=== PATIENT | female | born 1965 | race Caucasian/White ===

== ENCOUNTER 2020-04-01 15:09 | Emergency (ER) | payer OTHER ==
[2020-04-01 15:37] VITALS: BMI 29.9
[2020-04-01] MEDS ORDERED: METOPROLOL TARTRATE 50 MG TABLET (FP) PO ONE (15:44)
[2020-04-01] MEDS ORDERED: LACTATED RINGERS SOLUTION 1000 ML INFUS.BAG IV ONE (15:45)
[2020-04-01] MEDS ORDERED: METOPROLOL TARTRATE 50 MG TABLET (FP) ONE (15:47)
--- OUTSIDE RECORDS SUMMARY | 2020-04-01 15:53 | XMS ---
:1965 Author Organization [facility] Care Team Providers Name Role Phone Horacio Suazo MD Unavailable Unavailable Horacio Suazo MD Unavailable Unavailable Horacio Suazo MD Unavailable Unavailable Horacio Suazo MD Unavailable Unavailable Horacio Suazo MD Unavailable Unavailable Horacio Suazo MD Unavailable Unavailable Horacio Suazo MD Unavailable Unavailable Horacio Suazo MD Unavailable Unavailable Horacio Suazo MD Unavailable Unavailable Horacio Suazo MD Unavailable Unavailable Horacio Suazo MD Unavailable Unavailable Horacio Suazo MD Unavailable Unavailable Horacio Suazo MD Unavailable Unavailable Horacio Suazo MD Unavailable Unavailable Horacio Suazo MD Unavailable Unavailable Horacio Suazo MD Unavailable Unavailable Horacio Suazo MD Unavailable Unavailable Horacio Suazo MD Unavailable Unavailable Re-disclosure Warning The records that you are about to access may contain information from federally- assisted alcohol or drug abuse programs. If such information is present, then the following federally mandated warning applies: This information has been disclosed to you from records protected by federal confidentiality rules (42 CFR part 2). The federal rules prohibit you from making any further disclosure of this information unless further disclosure is expressly permitted by the written consent of the person to whom it pertains or as otherwise permitted by 42 CFR part 2. A general authorization for the release of medical or other information is NOT sufficient for this purpose. The Federal rules restrict any use of the information to criminally investigate or prosecute any alcohol or drug abuse patient.The records that you are about to access may contain highly sensitive health information, the redisclosure of which is protected by Article 27-F of the [facility] Public Health law. If you continue you may haveaccess to information: Regarding HIV / AIDS; Provided by facilities licensed or operated by the [facility] Office of Mental Health; or Provided by the [facility] Office for People With Developmental Disabilities. If such information is present, then the following [facility] mandated warning applies: This information has been disclosed to you from confidential records which are protected by state law. State law prohibits you from making any further disclosure of this information without the specific written consent of the person to whom it pertains, or as otherwise permitted by law. Any unauthorized further disclosure in violation of state law may result in a fine or alf sentence or both. A general authorization for the release of medical or other information is NOT sufficient authorization for further disclosure. Encounters Encounter Providers Location Date Indications Data Source(s ) [facility] 03:30:00 [facility] [employer] [facility] EDT - 02/19/2020 Healt [facility] 04:08:21 PM EDT Patient discharged. Outpatient 01/22/2020 10:30:00 AM EDT - [facility] 01/22/2020 02:09:26 PM EDT System [facility] Patient discharged. Outpatient 01/19/2020 10:09:29 AM EDT [facility] Outpatient 01/19/2020 10:07:[address] AM [address]T [facility] Outpatient 01/15/2020 11:54:[address] [facility] Outpatient 01/15/2020 11:45:00 AM EDT - [facility] 01/15/2020 12:38:05 PM EDT System [facility] Patient discharged. Inpatient Admitter: Horacio Suazo 01/07/2020 12:00:00 AM Reuben ARCINIEGA - Storm Schaffer MD EDT - 01/08/2020 Hospital 05:54:00 PM EDT SVT Patient discharged. Outpatient 10/16/2019 03:45:00 PM [address] [facility] Outpatient 09/04/2019 04:30:[address] [facility] Outpatient 09/04/2019 12:00:00 AM EDT [facility] Medications Medication Brand Start Product Dose Route Administrative Pharmacy [facility] Indications Reaction Description Data Name Date Form Instructions Instructions Source(s) Lisinopril lisino 02/01/ 20 mg Oral active Take 1 Tab Bon 20 MG Oral priL 2020 by mouth Secou rs Tablet (PRINI 12:00: daily. Seema lisinopriL JOE, 00 AM Health (PRINIVIL, ZESTRI EDT System Inc ZESTRIL) 20 L) 20 mg tablet mg tablet Hydralazine hydrAL 01/25/ active TAKE 1 Bon Hydrochlori AZINE 2020 TABLET BY Se cours de 25 MG (APRES 12:00: MOUTH EVERY Seema Oral Tablet OLINE) 00 AM 12 HOURS H ealth hydrALAZINE 25 mg EDT System Inc (APRESOLINE tablet ) 25 mg tablet 24 HR metopr 01/14/ 50 mg Oral active Essential Take 1 Tab Bon metoprolol olol 2020 hypertension by laz th [facility] succinate succin 12:00: every twelv e Seema 50 MG ate 00 AM (12) hours. Health Extended (TOPRO EDT System In c Release L-XL) Oral Tablet 50 mg metoprolol XL succinate tablet (TOPROL-XL) 50 mg XL tablet Essential hypertension Metoprolol metoprolol 01/08/2020 50 Oral aborted 50 mg, Oral, 2 Bon Tartrate 50 tartrate 06:00:00 PM mg TI MES DAILY, [facility] MG Oral (LOPRESSOR) EDT First dose Seema Tablet tablet 50 mg (after [facility] metoprolol modification) System tartrate on Wed01/08/20 I nc (LOPRESSOR) at 1800, Unti l tablet 50 mg Discontinued Medication administered onsite Hydrochlorothiazide hydroCHLOROthiazide 01/08/2020 25 Oral aborted 25 mg, Oral, Bon 25 MG Oral Tablet (HYDRODIURIL) tablet 09:00:00 AM mg DAILY, [facility] hydroCHLOROthiazide 25 mg EDT dose on Wed Seema (HYDRODIURIL) tablet 01/07 at Health 25 mg 0900, Until System Discontinued Inc Medication administered onsite Lisinopril lisinopriL 01/08/2020 20 Oral aborted 20 mg, Oral, Bon 10 MG Oral (PRINIVIL, 09:00:00 AM mg D AILY, [facility] Tablet ZESTRIL) EDT dose on Wed Ch arity lisinopriL tablet 20 mg 0 at [facility] (PRINIVIL, 0900, Until Sy stem ZESTRIL) Discontinued Inc tablet 20 mg Medication administered onsite Hydralazine hydrALAZINE 01/08/2020 25 Oral aborted 25 mg, Oral, Bon Hydrochloride (APRESOLINE) 09:00:00 AM mg 2 TIMES [facility] 25 MG Oral tablet 25 mg EDT DAILY, First [facility] Tablet dose on [facility] hydrALAZINE 01/08/20 at stem (APRESOLINE) 0900, Until Inc tablet 25 mg Discontinued Medication administered onsite 24 HR metoprolol 01/08/2020 100 Oral aborted Essential Take 2 Bon metoprolol succinate 12:00:00 AM mg hypertension Tabs by [facility] succinate 50 (TOPROL-XL) EDT mouth Seema MG Extended 50 mg XL daily. He alth Release Oral tablet Syste m Tablet Inc metoprolol succinate (TOPROL-XL) 50 mg XL tablet Essential hypertension Lisinopril lisinopriL 01/08/2020 20 Oral active Take 1 Tab by Bon 20 MG Oral (PRINIVIL, 12:00:00 AM mg m outh daily. [facility] Tablet ZESTRIL) 20 EDT Charit y lisinopriL mg tablet Heal th (PRINIVIL, System ZESTRIL) 20 Inc mg tablet Metoprolol metoprolol 01/07/2020 25 Oral aborted 25 mg, Oral, 2 Bon Tartrate 25 tartrate 09:49:00 PM mg TI MES DAILY, [facility] MG Oral (LOPRESSOR) EDT First dose Seema Tablet tablet 25 mg (after [facility] metoprolol reorder) on stem tartrate 01/07/20 at In c (LOPRESSOR) 2148, Until tablet 25 mg Discontinued Medication administered onsite 1 ML heparin 01/07/2020 5000 SubCUTAneous aborted 5,000 Units, Bon heparin (porcine) 08:48:00 PM U SubCU TAneous, [facility] sodium, injection EDT EVERY 12 Mary rity porcine 5,000 HOURS, [facility] 5000 UNT/ML Units dose on Sun System Injection 01/07/20 at Inc heparin 2047, Until (porcine) Discontinued injection 5,000 Units Medication administered onsite Metoprolol metoprolol 01/07/2020 25 Oral completed 25 mg, Bon Tartrate 25 MG tartrate 07:57:00 PM mg Oral, [facility] Oral Tablet (LOPRESSOR) EDT NOW, 1 Seema metoprolol tablet 25 mg dose, Health tartrate Sun System (LOPRESSOR) 01/07/20 Inc tablet 25 mg at 7 Medication administered onsite potassium 59714-420-91 01/07/2020 40 Oral completed 40 mEq, Bon chloride 07:53:00 PM meq Oral, Sec ours (K-DUR, EDT NOW, 1 Seema KLOR-CON) SR dose, Health tablet 40 Sun System mEq 01/07/20 Inc at 1953 Medication administered onsite Metoprolol metoprolol 01/07/2020 5 IntraVENous completed 5 mg, Bon Tartrate 1 (LOPRESSOR) 07:06:00 PM mg IntraVENous, [facility] MG/ML injection 5 EDT NOW, 1 dose, Seema Injectable mg 01/07/20 at [facility] Solution 1906 System metoprolol Inc (LOPRESSOR) injection 5 mg Medication administered onsite sodium 8318-9834-59 01/07/2020 1000 IntraVENous completed 1,000 mL, at Bon chloride 06:50:00 PM mL 1,000 mL/ hr, [facility] 0.9 % EDT Administer Seema bolus over 60 Health infusion Minutes, System 1,000 mL IntraVENous, Inc 1 dose Medication administered onsite Aspirin 81 aspirin 01/07/2020 162 mg Oral completed 162 mg, Bon MG Chewable chewable 06:34:00 PM Or al, [facility] Tablet tablet 162 EDT NOW, 1 Desiree ty aspirin mg dose, [facility] chewable 01/07/20 at System Inc tablet 162 1834 mg Medication administered onsite 24 HR metoprolol 11/24/2019 50 Oral aborted Essential Take 1 Bon metoprolol succinate 12:00:00 AM mg hypertension Tab by [facility] succinate 50 (TOPROL-XL) EDT mouth Seema MG Extended 50 mg XL daily. He alth Release Oral tablet Syste m Tablet Inc metoprolol succinate (TOPROL-XL) 50 mg XL tablet Essential hypertension Hydrochlorothiazide 25 MG / lisinopril-hydroCHLOROthiazide 10/05/2019 1 Oral aborted Take 1 Bon Lisinopril 20 MG Oral Tablet (PRINZIDE, ZESTORETIC) 20-25 mg 12:00:00 AM {tbl} Tab by [facility] lisinopril-hydroCHLOROthiazide per tablet EDT mouth Seema (PRINZIDE, ZESTORETIC) 20-25 mg daily. Health per tablet System Inc Hydralazine Hydrochloride 25 MG hydrALAZINE (APRESOLINE) 25 mg 0 active TAKE 1 Bon Oral Tablet hydrALAZINE tablet 12:00:00 AM TABLET [facility] (APRESOLINE) 25 mg tablet EST BY [facility] System 12 Inc HOURS Magnesium Oxide 500 MG Oral Magnesium Oxide 500 mg cap 1 O ral aborted Take 1 Bon Capsule Magnesium Oxide 500 mg {tbl} Tab by [facility] daily. Health System [facility] Insurance Providers Payer Policy type Policy ID Covered Covered republican's Policy Pl an name / Coverage republican ID relationship to [employer] type [place] AIG [id number] SP [id number] AETNA PPO [id number] S [id number] AETNA HMO [id number] AETNA [id number] AETNA PPO [id number] AETNA [id number] [place] [id number] HMO/PPO AETNA HMO [id number] BLUE [id number] CROSS AETNA PPO [id number] Problems, Conditions, and Diagnoses Code Display Name Description Problem Type Effective Data Dates Source(s) M16.11 Arthritis of right Arthritis of right [id number] [facility] hip hip 12:00:00 AM [facility] [employer] [facility] I10 Essential Essential [id number] 01/08/2020 [facility] hypertension hypertension 12:00:00 AM [facility] D64.9 Anemia Anemia [id number] 01/08/2020 [facility] 12:00:00 AM [facility] I47.1 PSVT (paroxysmal PSVT (paroxysmal [id number] 01/07/2020 [facility] supraventricular supraventricular 12:00:00 AM C harity tachycardia) (HCC) tachycardia) (HCC) [facility] (presumed) (presumed) System Inc E87.6 Hypokalemia Hypokalemia [id number] 01/07/2020 [facility] 12:00:00 AM [facility] Z68.32 Body mass index Body mass index Diagnosis 02/19/2020 [facility] (BMI) 32.0-32.9, (bmi) 32.0-32.9, 03:25:30 PM [facility] Z68.31 Body mass index Body mass index Diagnosis 01/22/2020 [facility] (BMI) 31.0-31.9, (bmi) 31.0-31.9, 10:32:33 AM [facility] Z12.39 Encounter for other Encounter for other Diagnosis 020 [facility] screening for screening for 10:32:33 AM [facility] malignant neoplasm malignant neoplasm [facility] breast breast [facility] Z12.11 Encounter for Encounter for Diagnosis 01/22/2020 [facility] screening for screening for 10:32:33 AM [facility] malignant neoplasm malignant neoplasm [facility] colon colon System Inc E87.6 Hypokalemia Hypokalemia Diagnosis 01/15/2020 [facility] 11:48:10 AM [facility] E87.6 Hypokalemia Hypokalemia Diagnosis 01/07/2020 [facility] - Good 06:33:00 PM [facility] I47.1 Supraventricular Supraventricular Diagnosis 01/07/2020 [facility] - Good tachycardia tachycardia 06:33:00 PM [facility] Surgeries/Procedures Procedure Description Date Indications Data Source(s) AMB POC EKG <td><content HypokalemiaEssential [facility] ROUTINE ID="[id number]">A 0 hypertensionPSVT [facility] LEADS, INTER & MB POC EKG ROUTINE W/ :05:00 (paroxysmal Syst em Inc REP 12 LEADS, INTER & PM EDT supraventricular REP</content></td><td> tachycardia) (HCC) Routine</td><td> (presumed) 2019 12:05 PM EDT</td><td><paragraph >PSVT (paroxysmal supraventricular tachycardia) (HCC) (presumed)</paragraph> <paragraph>Essential hypertension</paragrap h><paragraph>Hypokalem ia</paragraph></td><td ><paragraph styleCode="header">Res ults for this procedure are in the <content styleCode="xLink2-Resu [id number]">results section</content>.</pa ragraph></td> Hypokalemia Essential hypertension PSVT (paroxysmal supraventricular tachyc ardia) (HCC) (presumed) ECHO TTHRC R-T 2D ECHO ADULT Routine 01/08/2020 01/08/20 20 Bon W/WOM-MODE COMPL COMPLETE 9:38 AM EDT 09:38:00 A M [facility] SPEC&COLR DOP EDT [facility] nc PROTHROMBIN TIME PROTHROMBIN TIME Routine 01/08/202002/2020 Bon + INR + INR 4:15 AM EDT 04:15:00 AM [facility] nc CBC WITH CBC WITH Routine 01/08/2020 01/08/2020 Bon AUTOMATED DIFF AUTOMATED DIFF 4:15 AM EDT 04:15: 00 AM [facility] nc TROPONIN I TROPONIN I Blood in 01/08/2020 01/08/2020 Bon Lab 4:15 AM EDT 04:15:00 AM [facility] nc METABOLIC PANEL, METABOLIC PANEL, Routine 01/08/202002/2020 Bon COMPREHENSIVE COMPREHENSIVE 4:15 AM EDT 04:15:00 AM [facility] nc MAGNESIUM MAGNESIUM Routine 01/08/2020 01/08/2020 Bon 4:15 AM EDT 04:15:00 AM [facility] nc TROPONIN I TROPONIN I Timed 01/08/2020 01/08/2020 Bon 12:40 AM EDT 12:40:00 AM [facility] nc XR CHEST PORT XR CHEST PORT STAT 01/07/2020 0 Bon 7:40 PM EDT 07:40:51 PM [facility] nc EKG, 12 LEAD, EKG, 12 LEAD, STAT 01/07/2020 0 Bon INITIAL INITIAL 6:42 PM EDT 06:42:12 PM [facility] nc PROTHROMBIN TIME PROTHROMBIN TIME STAT 01/07/202001/2020 Bon + INR + INR 6:42 PM EDT 06:42:00 PM [facility] nc CBC WITH CBC WITH STAT 01/07/2020 01/07/2020 Bon AUTOMATED DIFF AUTOMATED DIFF 6:42 PM EDT 06:42: 00 PM [facility] nc HC TROPONIN I HC TROPONIN I STAT 01/07/2020 0 Bon QUANT QUANT 6:42 PM EDT 06:42:00 PM [facility] nc METABOLIC PANEL, METABOLIC PANEL, STAT 01/07/202001/2020 Bon COMPREHENSIVE COMPREHENSIVE 6:42 PM EDT 06:42:00 PM [facility] nc MAGNESIUM MAGNESIUM STAT 01/07/2020 01/07/2020 Bon 6:42 PM EDT 06:42:00 PM [facility] nc Results ID Date Data Source [id number] 01/08/2020 05:59:51 PM EDT [facility] DISCHARGE SUMMARY from NursePATIENT INST RUCTIONS:After general anesthesia or intravenous sedation, for 24 hours or wh ile takingprescription Narcotics: Limit your activities Do not drive and operate haz Cle[employer] Machine Do not make important personal or business decisions Do not drink alcoholic beverages If you have not urinated within 8 hours after discharge, please contact yourrgeon preparation supervisor freezing.Report the following to your surgeon: Excessiv e pain, swelling, redness or odor of or around the surgical area Temperature ov er 100.5 Nausea and vomiting lasting longer than 4 hours or if unable to takemedicat ions Any signs of decreased circulation or nerve impairment to extremity: change in color, persistent numbness, tingling, coldness or increase pain Any questions What to do at Home:Recommended activity: Activity as tolerated,* Please give a l ist of your current medications to your Primary Care Provider.* Please update t his list whenever your medications are discontinued, doses are changed, or n ew medications (including zojr-ctt-rqxgrmu products) are added.* Please carry medi cation information at all times in case of emergencysituations.These are general in structions for a healthy lifestyle:No smoking/ No tobacco products/ Avoid expo sure to second hand smokeSurge General's Warning: Quitting smoking now greatly r educes serious risk [facility].Obesity, smoking, and sedentary lifestyle greatly increases your risk forillnessA healthy diet, regular physical exercise & weight monitoring are important formaintaining a healthy lifestyleYou may be retaining fl uid if you have a history of heart failure or if youexperience any of the following sy mptoms: Weight gain of 3 pounds or moreovernight or 5 pounds in a week, inc reased swelling in our hands or feet orshortness of breath while lying flat i n bed. Please call your doctor as soon asyou notice any of these symptoms; do not guillermo t until your next office visit.The discharge information has been reviewed with the p linda. The patientverbalized understanding.Discharge medications revi ewed with the patient and appropriate educationalmaterials and side effects te aching were provided. Name Value Range Interpretation Code Description Data Stephie rce(s) Supporting Document(s ) ID Date Data Source [id number] 01/08/2020 04:57:20 PM EDT [facility] Medicine Progress Note54 y.o. fema le seen in f/u. Feeling beter today overall. No C/o. nsr tele. Nofever/chills/n/v/feli rrhea/abd pain/cruz/dizziness/sob/vogel/cough/cpoe/dys uria/darkor bloody stoolsVisit VitalsBP 143/89 (BP 1 Location: Right arm, BP Pat ient Position: At rest)Pulse 66Temp 98.3 F (36.8 C)Resp 18Ht 5' 6" (1.676 m)Wt 175 lb 8 oz (79.6 kg)SpO2 98%BMI 28.33 kg/m Temp (24hrs), Av.6 F (37 C), Min:98 F (36.7 C), Max:99.5 F (37.5 C)Wt Readings from Last 3 Encounters:01/07/20 175 lb 8 oz (79.6 kg)09/05/18 183 lb (83 kg)07/22/18 177 lb (80.3 kg)A/o x0esxRozTw diaphores isctabrrr s1/2 nlabd soft ntndNo e/c/cMoves/senses in all ext and follows simple commandsIntake/Output:No intake or output data in the 24 hours ending 01/07 1112Last 3 shifts:No intake/output data recorded.MAR reviewed and pertinent medi cations noted or modified as neededMeds:Current Facility-Administered MedicationsMedication Dose Route Frequency Provider Last Rate Last Dose hydrALAZIN E (APRESOLINE) tablet 25 mg 25 mg Oral BID Sirena Delgado NP25 mg at 01/08/20 1 019 lisinopriL (PRINIVIL, ZESTRIL) tablet 20 mg 20 mg Oral DAILY Rizwana Delgado N P 20 mg at 01/08/20 1019 hydroCHLOROthiazide (HYDRODIURIL) tablet 25 mg 25 mg Oral DAILY Rizwana Delgado DIRECTOR DIETETICS DEPARTMENT 25 mg at 01/08/20 1019 pantoprazole ( PROTONIX) 40 mg in 0.9% sodium chloride 10 mL injection 40 mgIntraVENous ONCE Shtramb Viet dominguez MD heparin (porcine) injection 5,000 Units 5,000 Units SubCUTAneous Q1 2H Horacio Suazo MD 5,000 Units at 01/08/20 1019 metoprolol tartrate (LOPRESSOR) ta blet 25 mg 25 mg Oral BID Horacio Suazo MD25 mg at 01/08/20 1019Data personally reviewed:Labs:Recent Results (from the past 48 hour(s))METABOLIC PANEL, COMPREHENSIV E Collection Time: 01/07/20 6:42 PMResult Value Ref Range Sodium 141 136 - 145 mmo l/L Potassium 3.2 (L) 3.5 - 5.1 mmol/L Chloride 107 98 - 107 mmol/L CO2 26 21 - 32 mmol/L Anion gap 11 10 - 20 mmol/L Glucose 161 (H) 74 - 106 mg/dL BUN 16 7 - 18 mg/dL Creatinine 1.19 (H) 0.40 - 1.16 mg/dL GFR est AA >60 >60 ml/min/1.73m2 G FR est non-AA 50 (L) >60 ml/min/1.73m2 Calcium 8.7 8.5 - 10.1 mg/dL Bilirubin, total 0.3 0.2 - 1.0 mg/dL ALT (SGPT) 19 13 - 61 U/L AST (SGOT) 14 (L) 15 - 37 U/L Alk . phosphatase 70 45 - 117 U/L Protein, total 7.4 6.4 - 8.2 g/dL Albumin 3.6 3.5 - 4.7 g/dL Globulin 3.8 1.7 - 4.7 g/dL A-G Ratio 0.9 0.7 - 2.8CBC WITH AUTOMATED DIFF Col lection Time: 01/07/20 6:42 PMResult Value Ref Range WBC 3.4 (L) 4.8 - 10.6 K/uL RB C 4.16 (L) 4.20 - 5.40 M/uL HGB 12.4 12.0 - 16.0 g/dL HCT 37.7 36.0 - 47.0 % MCV 90. 6 81.0 - 94.0 FL MCH 29.8 27.0 - 35.0 PG MCHC 32.9 30.7 - 37.3 g/dL RDW 12.6 11.5 - 14 .0 % PLATELET 260 130 - 400 K/uL MPV 10.8 9.2 - 11.8 FL NRBC 0.0 0 PER 100 WBC ABSOLUT E NRBC 0.00 0.0 - 0.01 K/uL NEUTROPHILS 50 48.0 - 72.0 % LYMPHOCYTES 42 (H) 18.0 - 40.0 % MONOCYTES 5 2.0 - 12.0 % EOSINOPHILS 3 0.0 - 7.0 % BASOPHILS 0 0.0 - 3.0 % NISHA TURE GRANULOCYTES 0 0 - 0.5 % ABS. NEUTROPHILS 1.7 (L) 2.3 - 7.6 K/UL ABS. LYMPHOCYTES 1.4 0.9 - 4.2 K/UL ABS. MONOCYTES 0.2 0.1 - 1.7 K/UL ABS. EOSINOPHILS 0.1 0.0 - 1.0 K/UL ABS. BASOPHILS 0.0 0.0 - 0.4 K/UL ABS. IMM. GRANS. 0.0 0.0 - 0.17 K/U L DF AUTOMATEDTROPONIN I Collection Time: 01/07/20 6:42 PMResult Value Ref Range Troponin-I, Qt. <0.02 0.00 - 0.05 NG/MLMAGNESIUM Collection Time: 01/07/20 6:42 PMResult Value Ref Range Magnesium 1.9 1.6 - 2.6 mg/dLPROTHROMBIN TIME + INR Co llection Time: 01/07/20 6:42 PMResult Value Ref Range Prothrombin time 10.2 9.4 - 11 .1 sec INR 1.0 0.8 - 1.2EKG, 12 LEAD, INITIAL Collection Time: 01/07/20 6:42 PMResult Value Ref Range Ventricular Rate 118 BPM Atrial Rate 124 BPM P-R Interval 161 ms QRS Duration 92 ms Q-T Interval 316 ms QTC Calculation (Bezet) 443 ms Calculated P Arena 45 degrees Calculated R Arena 12 degrees Calculated T Arena 73 degrees Diagnosis Sinus tachycardiaLow voltage, precordial leadsMinimal ST elevation, inferior lead sTROPONIN I Collection Time: 01/08/20 12:40 AMResult Value Ref Range Troponin-I, Qt. 0.02 0.00 - 0.05 NG/MLCBC WITH AUTOMATED DIFF Collection Time: 01/08/20 4:15 AMR esult Value Ref Range WBC 3.4 (L) 4.8 - 10.6 K/uL RBC 3.70 (L) 4.20 - 5.40 M/uL HGB 1 0.8 (L) 12.0 - 16.0 g/dL HCT 34.3 (L) 36.0 - 47.0 % MCV 92.7 81.0 - 94.0 FL MCH 29.2 27.0 - 35.0 PG MCHC 31.5 30.7 - 37.3 g/dL RDW 12.9 11.5 - 14.0 % PLATELET 230 130 - 40 0 K/uL MPV 11.2 9.2 - 11.8 FL NRBC 0.0 0 PER 100 WBC ABSOLUTE NRBC 0.00 0.0 - 0.01 K/ uL NEUTROPHILS 67 48.0 - 72.0 % LYMPHOCYTES 31 18.0 - 40.0 % MONOCYTES 1 (L) 2.0 - 1 2.0 % EOSINOPHILS 1 0.0 - 7.0 % BASOPHILS 0 0.0 - 3.0 % IMMATURE GRANULOCYTES 0 % AB S. NEUTROPHILS 2.3 2.3 - 7.6 K/UL ABS. LYMPHOCYTES 1.1 0.9 - 4.2 K/UL ABS. MONO CYTES 0.0 (L) 0.1 - 1.7 K/UL ABS. EOSINOPHILS 0.0 0.0 - 1.0 K/UL ABS. BASOPHILS 0.0 0. 0 - 0.4 K/UL ABS. IMM. GRANS. 0.0 K/UL RBC COMMENTS NORMOCYTIC, NORMOCHROMIC PLATEL ET ESTIMATE ADEQUATE DF MANUALMETABOLIC PANEL, COMPREHENSIVE Collection Time: 4:15 AMResult Value Ref Range Sodium 142 136 - 145 mmol/L Potassium 3.8 3.5 - 5.1 mmol/L Chloride 111 (H) 98 - 107 mmol/L CO2 28 21 - 32 mmol/L Anion gap 7 (L) 10 - 20 mmol/L Glucose 100 74 - 106 mg/dL BUN 18 7 - 18 mg/dL Creatinine 0.74 0.40 - 1 .16 mg/dL GFR est AA >60 >60 ml/min/1.73m2 GFR est non-AA >60 >60 ml/min/1.73m2 Celia cium 8.9 8.5 - 10.1 mg/dL Bilirubin, total 0.4 0.2 - 1.0 mg/dL ALT (SGPT) 15 13 - 6 1 U/L AST (SGOT) 9 (L) 15 - 37 U/L Alk. phosphatase 57 45 - 117 U/L Protein, tot al 6.4 6.4 - 8.2 g/dL Albumin 3.0 (L) 3.5 - 4.7 g/dL Globulin 3.4 1.7 - 4.7 g/dL A-G Ratio 0.9 0.7 - 2.8PROTHROMBIN TIME + INR Collection Time: 01/08/20 4:15 AMResult Value Ref Range Prothrombin time 10.6 9.4 - 11.1 sec INR 1.0 0.8 - 1.2MAGNESIUM Sean ection Time: 01/08/20 4:15 AMResult Value Ref Range Magnesium 2.1 1.6 - 2.6 mg/Deirdre ROPONIN I Collection Time: 01/08/20 4:15 AMResult Value Ref Range Troponin-I, Qt. <0.02 0.00 - 0.05 NG/MLECHO ADULT COMPLETE Collection Time: 01/08/20 9:38 AMResult Value Ref Range Aortic Valve Systolic Peak Velocity 147.00 cm/s AoV VTI 35.30 cm Ao rtic Valve Area by Continuity of Peak Velocity 3.8 cm2 Aortic Valve Area by Co ntinuity of VTI 3.1 cm2 AoV PG 8.6 mmHg LVIDd 4.63 3.9 - 5.3 cm LVPWd 1.00 (A) 0.6 - 0 .9 cm LVIDs 2.83 cm IVSd 1.10 (A) 0.6 - 0.9 cm LV ES Vol A4C 26.6 mL LVOT d 2.10 cm LVOT Peak Velocity 160.00 cm/s LVOT Peak Gradient 10.2 mmHg LVOT VTI 31.70 cm LV E' Septal Velocity 9.27 cm/s LV E' Lateral Velocity 11.90 cm/s MVA (PHT) 4.6 cm2 MV A Manuel 72.90 cm/s MV E Manuel 117.00 cm/s MV E/A 1.60 Pulmonic Valve Acceleration Time 97 .0 ms Aortic Valve Systolic Mean Gradient 6.0 mmHg LV Ejection Fraction MOD 4C 66 % LV Mass AL 171.6 (A) 67 - 162 g LV Mass AL Index 90.7 43 - 95 g/m2 E/E' lateral 9.8 3 E/E' septal 12.62 E/E' ratio (averaged) 11.23 LV ED Vol A4C 78.4 mL Mitral Valve E Wave Deceleration Time 165.0 ms Mitral Valve Pressure Half-time 48.0 ms Left At rium Minor Arena 1.85 cm Left Atrium Major Arena 3.50 cm LVED Vol Index A4C 41.4 mL/ m2 LVES Vol Index A4C 14.1 mL/m2 Ao Root D 2.50 cm GINA/BSA Pk Manuel 2.0 cm2/m2 GINA/BS A VTI 1.6 cm2/m2 Left Ventricular Fractional Shortening by 2D [id number] % Left Wong tricular Outflow Tract Mean Gradient 4 mmHg Left Ventricular Outflow Tract Mean Velo city 0.949 cm/s Mitral Valve Deceleration [place] 7.05 AV Velocity Ratio 1.09 AV VTI Ratio 0.9 Aortic valve mean velocity 1.12 m/sImaging:Xr Chest PortResult Date: 01/06CHEST 1 view HISTORY: Chest pain. Hypertension. COMPARISON: None. There is noevidence of acute cardiopulmonary disease. The heart, mediastinum, hilarregions, uzma ngs and pleura appear to be normal. There are degenerative changes ofthe spine. The re maining visualized portions of the bony thorax appear to benormal.IMPRESSION: No evidence of acute cardiopulmonary disease.A/p:Patient Active Hospital Prob walker List: SVT (supraventricular tachycardia) (HCC) (01/07/2020) Assessment: nsr now. E cho done this am. Trop neg Plan: check tsh. Cont meds per cv htn+Hypertensive heart disease Assessment: Plan: await echo, per cv Hypokalemia (01/07/2020) Assessment: b rosa today Plan: Monitor labs, correct prn Anemia (01/08/2020) Assessment: new. No prev cscope, or labs in 2.5y. hasnt seen pcp for unclearreason. Lower today likely d/ t ivf@er, no bleeding clinically Plan: protonix iv x1, guaiac, fe/vits check. M onitor labs, correct prnDmitry MD Rajeev[ ] Case d/w consultants in detail.[ ] Case d/w pt's family in detailCase d/w rn&cm [id number] 4:51 PMCase d/w Yesi rosas&Trav. Dc home on adjusted meds. Script given for bwtomorrow.>50% of this ~35___ min visit spent on [id number] and phone coordination ofcare, and patient e ducation and counseling across all conditions, and other dcneeds. Pt verbal ized understanding and agreement w/ w/u and tx plan.Viet Boo MD Name Value Range Interpretation Code Description Data Stephie rce(s) Supporting Document(s ) ID Date Data Source [id number] 01/08/2020 04:56:38 PM EDT [facility] - [facility] 01/07/2020-01/08/20Please see admission h& p and consults-cv/eps - in Epic. See my progress notefrom today for more details of pt's stay. In brief, admitted for SVT(supraventricular tachycardia) (HCC)- terminated by adenosine in the field.Please see d/c meds list below. No complication s during hospital stay. Ptclinically and symptomatically improved during the hosp ital stay. I gave herscript for bw tomorrow. I advised her also to record and bring b p diary to herupcoming appts.Follow-up Information Follow up With Specialties D etails Why Contact Info Ellen Smith MD Family Medicine Schedule an appointment as soon as possiblefor a visit [address] [phone] Rhea Livingston MD Cardiology Schedule an appointment as soon as possible for dolores it in 3 days 12 [facility] [phone] go for non-fasting bloodwork tomorrowCurrent Discharge Medication ListSTART taking these medica tions DetailslisinopriL (PRINIVIL, ZESTRIL) 20 mg tablet Take 1 Tab by mouth daily.Q ty: 30 Tab, Refills: 0CONTINUE these medications which have CHANGED Detailsme toprolol succinate (TOPROL-XL) 50 mg XL tablet Take 2 Tabs by mouth daily.Qty: 9 0 Tab, Refills: 1 Associated Diagnoses: Essential hypertensionCONTINUE these med ications which have NOT CHANGED DetailshydrALAZINE (APRESOLINE) 25 mg ta blet TAKE 1 TABLET BY MOUTH EVERY 12 HOURSQty: 180 Tab, Refills: 1ascorbic ac id, vitamin C, 1,000 mg chew Take 1 Tab by mouth daily.Magnesium Oxide 500 mg cap T margaux 1 Tab by mouth daily.CHOLECALCIFEROL, VITAMIN D3, (VITAMIN D3 PO) Take 1 Cap b y mouth daily. [id number] IUSTOP taking these medications lisinopril-hydroCHLOROthiazi de (PRINZIDE, ZESTORETIC) 20-25 mg per tabletComments:Reason for Stopping:Ronda Boo MD Name Value Range Interpretation Code Description Data Stephie rce(s) Supporting Document(s ) ID Date Data Source [id number] 01/08/2020 02:52:34 PM EDT [facility] - [facility] Department of ElectrophysiologyGood Charlie ritan [address], [address] [address]Qzvedi: [phone] Office Ihbdtmb ElectrophysiologyPatient: Paige Armstrong Date of : 1965 's Date: 01/08/2020 Age: 54 y .o. Gender: femaleReferring Physician: Saroj Almodovar [facility] Complaint:Palpitatio nsHistory of Present Illness:54 y.o. female with a PMH of hypertension who was in he re usual state of healthwhen she suddenly developed a fast regular heart rhythm as sociated with sob andsevere anxiety. Patient called EMS and was given Adenocard which converted herto a sinus tachycardia but no initial EKG is available for review.Nena ent states this has never happened to her before and denies any priorhistory of SV T/palpitations.Past Medical History:Diagnosis Date Hypertension OsteoarthritisPast S urgical History:Procedure Laterality Date HX HIP REPLACEMENT 05/2017Medications:Esme simons Facility-Administered Medications: hydrALAZINE (APRESOLINE) tablet 25 mg, 2 5 mg, Oral, BID, Sirena Delgado NP, 25 mg at 01/08/20 1019 lisinopriL (PRINIVIL, ZESTRIL) tablet 20 mg, 20 mg, Oral, DAILY, Rizwana Delgado NP, 20 mg at 01/08/20 1019 pantoprazole (PROTONIX) 40 mg in 0.9% sodium chloride 10 mL injection, 40 mg,I ntraVENous, ONCE, Viet Boo MD metoprolol tartrate (LOPRESSOR) tablet 5 0 mg, 50 mg, Oral, BID, Saroj Almodovar MD heparin (porcine) injection 5,000 Units, 5,000 Units, SubCUTAneous, Q12H,Horacio Suazo MD, 5,000 Units at 01/08/20 1019 Allergies:AllergiesAllergen Reactions Amlodipine PalpitationsSocial History: T he patient reports that she has never smoked. She has neverused smokeless tobacco. She reports current alcohol use of about 2.0 standarddrinks of alcohol per week. She reports that she does not use drugs.Family History: family history includes Hyperte nsion in her father and mother.Review of Systems: Pertinent positives and negativ es as per HPI. Denies fever,chills, sweat, weight change, hemoptysis, cough, abdomi nal pain, N/V, diarrhea,hematuria, bleeding, easy bruising. All other systems reviewe d and are negative.Physical Exam:Blood pressure 124/74, pulse 74, temperature 9 9.4 F (37.4 C), resp. rate 18,height 5' 6" (1.676 m), weight 175 lb 8 oz (79.6 kg), SpO2 97 %.Physical ExamConstitutional: She is oriented to person, place, and time. She appearswell-developed and well-nourished.HENT:Head: Normocephalic and atraumatic.Neck: Normal range of motion. Neck supple.Cardiovascular: Normal rate, regular rhythm and normal heart sounds.Pulmonary/Chest: Effort normal an d breath sounds normal.Abdominal: Soft. There is no abdominal tenderness.Musculoskelet al: Normal range of motion. General: No edema.Neurological: She is alert and raina ented to person, place, and time.Skin: Skin is warm. No erythema.Psychiatric: She cruz s a normal mood and affect. Her behavior is normal.Labs/Testing:ECG: Sinus tachycard ia rate 118 Low voltage in frontal leads.XR Results (most recent):Results from [facility] Encounter encounter on 01/07/20XR CHEST PORT Narrative CHEST 1 viewHISTORY: Ches t pain. Hypertension.COMPARISON: None.There is no evidence of acute cardiopulmonary disease. The heart, mediastinum,hilar regions, lungs and pleura appear to be n ormal. There are degenerativechanges of the spine. The remaining visualized portions of the bony thoraxappear to be normal. Impression IMPRESSION: No evidence of ac tiffany cardiopulmonary disease.Recent Results (from the past 24 hour(s))METABOLIC PANE L, COMPREHENSIVE Collection Time: 01/07/20 6:42 PMResult Value Ref Range Sodium 141 136 - 145 mmol/L Potassium 3.2 (L) 3.5 - 5.1 mmol/L Chloride 107 98 - 107 mmol/L CO2 26 21 - 32 mmol/L Anion gap 11 10 - 20 mmol/L Glucose 161 (H) 74 - 106 mg/dL BUN 16 7 - 18 mg/dL Creatinine 1.19 (H) 0.40 - 1.16 mg/dL GFR est AA >60 >60 ml/min/1.73m2 G FR est non-AA 50 (L) >60 ml/min/1.73m2 Calcium 8.7 8.5 - 10.1 mg/dL Bilirubin, total 0.3 0.2 - 1.0 mg/dL ALT (SGPT) 19 13 - 61 U/L AST (SGOT) 14 (L) 15 - 37 U/L Alk . phosphatase 70 45 - 117 U/L Protein, total 7.4 6.4 - 8.2 g/dL Albumin 3.6 3.5 - 4.7 g/dL Globulin 3.8 1.7 - 4.7 g/dL A-G Ratio 0.9 0.7 - 2.8CBC WITH AUTOMATED DIFF Col lection Time: 01/07/20 6:42 PMResult Value Ref Range WBC 3.4 (L) 4.8 - 10.6 K/uL RB C 4.16 (L) 4.20 - 5.40 M/uL HGB 12.4 12.0 - 16.0 g/dL HCT 37.7 36.0 - 47.0 % MCV 90. 6 81.0 - 94.0 FL MCH 29.8 27.0 - 35.0 PG MCHC 32.9 30.7 - 37.3 g/dL RDW 12.6 11.5 - 14 .0 % PLATELET 260 130 - 400 K/uL MPV 10.8 9.2 - 11.8 FL NRBC 0.0 0 PER 100 WBC ABSOLUT E NRBC 0.00 0.0 - 0.01 K/uL NEUTROPHILS 50 48.0 - 72.0 % LYMPHOCYTES 42 (H) 18.0 - 40.0 % MONOCYTES 5 2.0 - 12.0 % EOSINOPHILS 3 0.0 - 7.0 % BASOPHILS 0 0.0 - 3.0 % NISHA TURE GRANULOCYTES 0 0 - 0.5 % ABS. NEUTROPHILS 1.7 (L) 2.3 - 7.6 K/UL ABS. LYMPHOCYTES 1.4 0.9 - 4.2 K/UL ABS. MONOCYTES 0.2 0.1 - 1.7 K/UL ABS. EOSINOPHILS 0.1 0.0 - 1.0 K/UL ABS. BASOPHILS 0.0 0.0 - 0.4 K/UL ABS. IMM. GRANS. 0.0 0.0 - 0.17 K/U L DF AUTOMATEDTROPONIN I Collection Time: 01/07/20 6:42 PMResult Value Ref Range Troponin-I, Qt. <0.02 0.00 - 0.05 NG/MLMAGNESIUM Collection Time: 01/07/20 6:42 PMResult Value Ref Range Magnesium 1.9 1.6 - 2.6 mg/dLPROTHROMBIN TIME + INR Co llection Time: 01/07/20 6:42 PMResult Value Ref Range Prothrombin time 10.2 9.4 - 11 .1 sec INR 1.0 0.8 - 1.2EKG, 12 LEAD, INITIAL Collection Time: 01/07/20 6:42 PMResult Value Ref Range Ventricular Rate 118 BPM Atrial Rate 124 BPM P-R Interval 161 ms QRS Duration 92 ms Q-T Interval 316 ms QTC Calculation (Bezet) 443 ms Calculated P Arena 45 degrees Calculated R Arena 12 degrees Calculated T Arena 73 degrees Diagnosis Sinus tachycardiaLow voltage, precordial leadsMinimal ST elevation, inferior lead sTROPONIN I Collection Time: 01/08/20 12:40 AMResult Value Ref Range Troponin-I, Qt. 0.02 0.00 - 0.05 NG/MLCBC WITH AUTOMATED DIFF Collection Time: 01/08/20 4:15 AMR esult Value Ref Range WBC 3.4 (L) 4.8 - 10.6 K/uL RBC 3.70 (L) 4.20 - 5.40 M/uL HGB 1 0.8 (L) 12.0 - 16.0 g/dL HCT 34.3 (L) 36.0 - 47.0 % MCV 92.7 81.0 - 94.0 FL MCH 29.2 27.0 - 35.0 PG MCHC 31.5 30.7 - 37.3 g/dL RDW 12.9 11.5 - 14.0 % PLATELET 230 130 - 40 0 K/uL MPV 11.2 9.2 - 11.8 FL NRBC 0.0 0 PER 100 WBC ABSOLUTE NRBC 0.00 0.0 - 0.01 K/ uL NEUTROPHILS 67 48.0 - 72.0 % LYMPHOCYTES 31 18.0 - 40.0 % MONOCYTES 1 (L) 2.0 - 1 2.0 % EOSINOPHILS 1 0.0 - 7.0 % BASOPHILS 0 0.0 - 3.0 % IMMATURE GRANULOCYTES 0 % AB S. NEUTROPHILS 2.3 2.3 - 7.6 K/UL ABS. LYMPHOCYTES 1.1 0.9 - 4.2 K/UL ABS. MONO CYTES 0.0 (L) 0.1 - 1.7 K/UL ABS. EOSINOPHILS 0.0 0.0 - 1.0 K/UL ABS. BASOPHILS 0.0 0. 0 - 0.4 K/UL ABS. IMM. GRANS. 0.0 K/UL RBC COMMENTS NORMOCYTIC, NORMOCHROMIC PLATEL ET ESTIMATE ADEQUATE DF MANUALMETABOLIC PANEL, COMPREHENSIVE Collection Time: 4:15 AMResult Value Ref Range Sodium 142 136 - 145 mmol/L Potassium 3.8 3.5 - 5.1 mmol/L Chloride 111 (H) 98 - 107 mmol/L CO2 28 21 - 32 mmol/L Anion gap 7 (L) 10 - 20 mmol/L Glucose 100 74 - 106 mg/dL BUN 18 7 - 18 mg/dL Creatinine 0.74 0.40 - 1 .16 mg/dL GFR est AA >60 >60 ml/min/1.73m2 GFR est non-AA >60 >60 ml/min/1.73m2 Celia cium 8.9 8.5 - 10.1 mg/dL Bilirubin, total 0.4 0.2 - 1.0 mg/dL ALT (SGPT) 15 13 - 6 1 U/L AST (SGOT) 9 (L) 15 - 37 U/L Alk. phosphatase 57 45 - 117 U/L Protein, tot al 6.4 6.4 - 8.2 g/dL Albumin 3.0 (L) 3.5 - 4.7 g/dL Globulin 3.4 1.7 - 4.7 g/dL A-G Ratio 0.9 0.7 - 2.8PROTHROMBIN TIME + INR Collection Time: 01/08/20 4:15 AMResult Value Ref Range Prothrombin time 10.6 9.4 - 11.1 sec INR 1.0 0.8 - 1.2MAGNESIUM Sean ection Time: 01/08/20 4:15 AMResult Value Ref Range Magnesium 2.1 1.6 - 2.6 mg/Deirdre ROPONIN I Collection Time: 01/08/20 4:15 AMResult Value Ref Range Troponin-I, Qt. <0.02 0.00 - 0.05 NG/MLECHO ADULT COMPLETE Collection Time: 01/08/20 9:38 AMResult Value Ref Range Aortic Valve Systolic Peak Velocity 147.00 cm/s AoV VTI 35.30 cm Ao rtic Valve Area by Continuity of Peak Velocity 3.8 cm2 Aortic Valve Area by Co ntinuity of VTI 3.1 cm2 AoV PG 8.6 mmHg LVIDd 4.63 3.9 - 5.3 cm LVPWd 1.00 (A) 0.6 - 0 .9 cm LVIDs 2.83 cm IVSd 1.10 (A) 0.6 - 0.9 cm LV ES Vol A4C 26.6 mL LVOT d 2.10 cm LVOT Peak Velocity 160.00 cm/s LVOT Peak Gradient 10.2 mmHg LVOT VTI 31.70 cm LV E' Septal Velocity 9.27 cm/s LV E' Lateral Velocity 11.90 cm/s MVA (PHT) 4.6 cm2 MV A Manuel 72.90 cm/s MV E Manuel 117.00 cm/s MV E/A 1.60 Pulmonic Valve Acceleration Time 97 .0 ms Aortic Valve Systolic Mean Gradient 6.0 mmHg LV Ejection Fraction MOD 4C 66 % LV Mass AL 171.6 (A) 67 - 162 g LV Mass AL Index 90.7 43 - 95 g/m2 E/E' lateral 9.8 3 E/E' septal 12.62 E/E' ratio (averaged) 11.23 LV ED Vol A4C 78.4 mL Mitral Valve E Wave Deceleration Time 165.0 ms Mitral Valve Pressure Half-time 48.0 ms Left At rium Minor Arena 1.85 cm Left Atrium Major Arena 3.50 cm LVED Vol Index A4C 41.4 mL/ m2 LVES Vol Index A4C 14.1 mL/m2 Ao Root D 2.50 cm GINA/BSA Pk Manuel 2.0 cm2/m2 GINA/BS A VTI 1.6 cm2/m2 Left Ventricular Fractional Shortening by 2D 38.120037219 % Left Wong tricular Outflow Tract Mean Gradient 4 mmHg Left Ventricular Outflow Tract Mean Velo city 0.949 cm/s Mitral Valve Deceleration [place] 7.05 AV Velocity Ratio 1.09 AV VTI Ratio 0.9 Aortic valve mean velocity 1.12 m/sAssessment/Plan54 y.o. female with a PMH of hypertension who was in here usual state of healthwhen she suddenly develop ed a fast regular heart rhythm associated with sob andsevere anxiety. Patient celia led EMS and was given Adenocard which converted herto a sinus tachycardia but no initial EKG is available for review.Patient states this has never hap pened to her before and denies any priorhistory of SVT/palpitations.Probabl e PSVT but no EKG to document it.Would discharge patient on increase dose of be ta alfa and place an outpatientevent recorder during follow up.Suman Kang MD Name Value Range Interpretation Code Description Data Stephie rce(s) Supporting Document(s ) ID Date Data Source [id number] 01/08/2020 11:23:12 AM EDT [facility] - [facility] Marshall Dodson MD [facility] Nguyễn Bazan MD [facility] Maggie Dueñas MD [facility] Maria Teresa Miguel MD [facility] Melissa Livingston MD [facility] Saroj Almodovar MD [facility] cARDIOLOGY CONSULTATION ____ASSESSMENTHospital Problems Date Reviewed: 09/05/2018 Codes Class Noted POA Hypokalemia ICD-10-CM: E87.6ICD-9-CM: 276.8 01/07/2020 Yes * (Principal) SVT (s upraventricular tachycardia) (HCC) ICD-10-CM: I47.1ICD-9-CM: 427.89 01/07/2020 Yes Hypertensive heart disease ICD-10-CM: I11.9ICD-9-CM: 402.90 08/01/2014 YesRECOMMENDATIONS- Discontinue HCTZ in favor of increased BBlocker dose for SVT- ECHO pending- Ambulate ad libCV stable for outpatient follow-up on increased BBlocker pending ECHO/EPConsult.See ordersThank you for the opportunity to p articipate in the care of Paige Armstrong.(X) Chart reviewed.Consult requested by Ellen Coffey MD CC: SVTHPI: Paige Armstrong is a 54 y.o. year old female with a history of HTN an dHTN-CM followed annually in the outpatient office with no additional CVD orsymptoms since Echo/str ess/24h Holter in 2014, who now presents with acute onsetof palpitations prompting EMS. Patient rep orts being in her usual state ofhealth since her office visit last year. She denies any intentional C Vexercise, but remains active doing vigorous housework without exertional cp,palps, or dyspnea.Patient remained in good health all weekend, including Wednesday AM. She performedvigorous housework without limi tations. At rest at 5pm, she experienced theacute onset of palpitations with associated sensation o f dyspnea/anxietyprompting EMS. EMS arrival confirmed tachycardia, prompting recommendations t oValsalva. She was reportedly administered Adenosine 6mg with transientimprovement, and then return of SVT. She was then administered Adenosine 12mgwith ?reported termination.However, patient reports on going palpitations upon arrival [facility] ER. She deniesany abrupt termination of her symptoms with medicat ion administration. She doesreport her symptoms had subsided by the time she arrived to her [facility] room ~10pm.Since then,Paige Armstrong denies any chest pain, palpitations, dyspnea, lightheadedness,d izziness, syncope, PND, orthopnea, or edema.She remains extremely anxious regarding this episode , and in general. Patientadmits this weekend was the 1 year anniversary of her father's .Past M edical History:Diagnosis Date Hypertension OsteoarthritisPast Surgical History:Procedure Laterality Da te HX HIP REPLACEMENT 05/2017AllergiesAllergen Reactions Amlodipine PalpitationsCurrent Facility- Administered MedicationsMedication Dose Route Frequency hydrALAZINE (APRESOLINE) tablet 25 mg 2 5 mg Oral BID lisinopriL (PRINIVIL, ZESTRIL) tablet 20 mg 20 mg Oral DAILY hydroCHLOROthiazide (HYDR ODIURIL) tablet 25 mg 25 mg Oral DAILY heparin (porcine) injection 5,000 Units 5,000 Units SubCU TAneous Q12H metoprolol tartrate (LOPRESSOR) tablet 25 mg 25 mg Oral BIDFamily HistoryProblem Relatio n Age of Onset Hypertension Mother Hypertension FatherSocial HistoryTobacco Use Smoking status: Cassidy conklin Smoker Smokeless tobacco: Never UsedSubstance Use Topics Alcohol use: Yes Alcohol/week: 2.0 paul dard drinks Types: 2 Glasses of wine per week Comment: sociallyComplete Review of SystemsNo fev er, chills, weight gain, weight lossNo visual changes or dischargeNo hearing changes, cough, rhin orrhea, sneezing, sore throat, epixtaxisNo wheezing, sputum, phlegm, hemoptysisNo nausea, vomiting, d iarrhea, constipation, melena, BRBPRNo dysuria, hematuria, pyuria, frequency, urgencyNo rash, itchi ngNo headache, focal weakness, or focal numbess+depression/anxiety, or dysthymia No bruising, bleedingX All other ROS is negative Unable to obtain ROS due to acute nature of critic al illness/mental statusVisit VitalsBP 143/89 (BP 1 Location: Right arm, BP Patient Position: At rest) Pulse 66Temp 98.3 F (36.8 C)Resp 18Ht 5' 6" (1.676 m)Wt 175 lb 8 oz (79.6 kg)SpO2 98%BMI 28.33 kg/m Temp (24hrs), Av.6 F (37 C), Min:98 F (36.7 C), Max:99.5 F (37.5 C)No intake or output data in the 24 hours ending 01/08/20 0858General: Well developed, well nourished, no acute dist ress, mood appropriateHEENT: Normocephalic, atraumatic, no discharge, epistaxis, membranes moistNec k: Supple, no JVD, carotid bruits, or lymphadenopathy appreciatedChest: Non-tender, no snow h visible, no wound bleeding, oozing, or erythemaLungs: Clear to auscultation bilaterally, no wh eezing, rales, or ronchiCV: Regular rate and rhythm, normal S1 S2, no murmurs, rubs, or phillip psAbd: Soft non-tender, non- distended, no hepatosplenomegaly, no bruitsExt: Warm, well-perfused, no cyanosis, clubbing, or edema, distal pulse2+Neuro: Awake, alert, and orien cecile x3, no acute distress, no focal deficitsSkin: Warm, dry, no open wounds, bleeding, or bruisi ng visible, no rashTele: NSREMS Strips: Sinus tachycardia ~130 bpm -> NSR (sinus morphology p-wave sidentified on available strips)EKG: Sinus tachycardiaEKG Results Procedure 720 Value Units Date/T jennifer EKG, 12 LEAD, INITIAL [[id number]] Collected: 01/07/20 1842 Order Status: Completed Updated: 01/07 0819 Ventricular Rate 118 BPM Atrial Rate 124 BPM P-R Interval 161 ms QRS Duration 92 ms Q-T Interval 316 ms QTC Calculation (Bezet) 443 ms Calculated P Arena 45 degrees Calculated R Arena 12 de grees Calculated T Arena 73 degrees Diagnosis -- Sinus tachycardiaLow voltage, precordial leads Minimal ST elevation, inferior [id number] ECHO: Normal [id number] ETT: [id number] 24h Holter: NSR with AP CsCXR:CXR Results (Last 48 hours) 01/07/20 1940 XR CHEST PORT Final result Impression: IMPRESSION: No evidence of acute cardiopulmonary disease. Narrative: CHEST 1 viewHISTORY: Chest pain. Hypertension.CO MPARISON: None.There is no evidence of acute cardiopulmonary disease. The heart, mediastinum,hilar re gions, lungs and pleura appear to be normal. There are degenerativechanges of the spine. The re maining visualized portions of the bony thoraxappear to be normal.Recent Results (from the past 24 hour(s))METABOLIC PANEL, COMPREHENSIVE Collection Time: 01/07/20 6:42 PMResult Value Ref Range Sodium 141 136 - 145 mmol/L Potassium 3.2 (L) 3.5 - 5.1 mmol/L Chloride 107 98 - 107 mmol/L CO2 26 21 - 32 mmol/L Anion gap 11 10 - 20 mmol/L Glucose 161 (H) 74 - 106 mg/dL BUN 16 7 - 18 mg/dL Creatinine 1.1 9 (H) 0.40 - 1.16 mg/dL GFR est AA >60 >60 ml/min/1.73m2 GFR est non-AA 50 (L) >60 ml/min/1.73m2 Calc ium 8.7 8.5 - 10.1 mg/dL Bilirubin, total 0.3 0.2 - 1.0 mg/dL ALT (SGPT) 19 13 - 61 U/L AST (SGOT) 14 (L) 15 - 37 U/L Alk. phosphatase 70 45 - 117 U/L Protein, total 7.4 6.4 - 8.2 g/dL Albumin 3.6 3.5 - 4.7 g/dL Globulin 3.8 1.7 - 4.7 g/dL A-G Ratio 0.9 0.7 - 2.8CBC WITH AUTOMATED DIFF Collection Time: 02/17 6:42 PMResult Value Ref Range WBC 3.4 (L) 4.8 - 10.6 K/uL RBC 4.16 (L) 4.20 - 5.40 M/uL HGB 1 2.4 12.0 - 16.0 g/dL HCT 37.7 36.0 - 47.0 % MCV 90.6 81.0 - 94.0 FL MCH 29.8 27.0 - 35.0 PG MCHC 32. 9 30.7 - 37.3 g/dL RDW 12.6 11.5 - 14.0 % PLATELET 260 130 - 400 K/uL MPV 10.8 9.2 - 11.8 FL NRBC 0.0 0 PER 100 WBC ABSOLUTE NRBC 0.00 0.0 - 0.01 K/uL NEUTROPHILS 50 48.0 - 72.0 % LYMPHOCYTES 42 (H) 18.0 - 40.0 % MONOCYTES 5 2.0 - 12.0 % EOSINOPHILS 3 0.0 - 7.0 % BASOPHILS 0 0.0 - 3.0 % IMMATURE GRANULO CYTES 0 0 - 0.5 % ABS. NEUTROPHILS 1.7 (L) 2.3 - 7.6 K/UL ABS. LYMPHOCYTES 1.4 0.9 - 4.2 K/UL ABS. MONO CYTES 0.2 0.1 - 1.7 K/UL ABS. EOSINOPHILS 0.1 0.0 - 1.0 K/UL ABS. BASOPHILS 0.0 0.0 - 0.4 K/UL ABS. I MM. GRANS. 0.0 0.0 - 0.17 K/UL DF AUTOMATEDTROPONIN I Collection Time: 01/07/20 6:42 PMResult Value Ref Range Troponin-I, Qt. <0.02 0.00 - 0.05 NG/MLMAGNESIUM Collection Time: 01/07/20 6:42 PMResult Value Ref Range Magnesium 1.9 1.6 - 2.6 mg/dLPROTHROMBIN TIME + INR Collection T jennifer: 01/07/20 6:42 PMResult Value Ref Range Prothrombin time 10.2 9.4 - 11.1 sec INR 1.0 0.8 - 1.2EKG , 12 LEAD, INITIAL Collection Time: 01/07/20 6:42 PMResult Value Ref Range Ventricular Rate 118 BPM Atrial Rate 124 BPM P-R Interval 161 ms QRS Duration 92 ms Q-T Interval 316 ms QTC Calculation (Bezet) 443 ms Calculated P Arena 45 degrees Calculated R Arena 12 degrees Calculated T Arena 73 degrees Feli gnosis Sinus tachycardiaLow voltage, precordial leadsMinimal ST elevation, inferior leadsTROPONIN I C ollection Time: 01/08/20 12:40 AMResult Value Ref Range Troponin-I, Qt. 0.02 0.00 - 0.05 NG/MLCB C WITH AUTOMATED DIFF Collection Time: 01/08/20 4:15 AMResult Value Ref Range WBC 3.4 (L) 4.8 - 10.6 K /uL RBC 3.70 (L) 4.20 - 5.40 M/uL HGB 10.8 (L) 12.0 - 16.0 g/dL HCT 34.3 (L) 36.0 - 47.0 % MCV 92.7 81.0 - 94.0 FL MCH 29.2 27.0 - 35.0 PG MCHC 31.5 30.7 - 37.3 g/dL RDW 12.9 11.5 - 14.0 % PLATELET 230 130 - 400 K/uL MPV 11.2 9.2 - 11.8 FL NRBC 0.0 0 PER 100 WBC ABSOLUTE NRBC 0.00 0.0 - 0.01 K/uL NEUTR OPHILS 67 48.0 - 72.0 % LYMPHOCYTES 31 18.0 - 40.0 % MONOCYTES 1 (L) 2.0 - 12.0 % EOSINOPHILS 1 0.0 - 7 .0 % BASOPHILS 0 0.0 - 3.0 % IMMATURE GRANULOCYTES 0 % ABS. NEUTROPHILS 2.3 2.3 - 7.6 K/UL ABS. LYMP HOCYTES 1.1 0.9 - 4.2 K/UL ABS. MONOCYTES 0.0 (L) 0.1 - 1.7 K/UL ABS. EOSINOPHILS 0.0 0.0 - 1.0 K/UL ABS. BASOPHILS 0.0 0.0 - 0.4 K/UL ABS. IMM. GRANS. 0.0 K/UL RBC COMMENTS NORMOCYTIC, NORMOCHROMIC PL ATELET ESTIMATE ADEQUATE DF MANUALMETABOLIC PANEL, COMPREHENSIVE Collection Time: 01/08/20 4:15 AMResult Value Ref Range Sodium 142 136 - 145 mmol/L Potassium 3.8 3.5 - 5.1 mmol/L Chloride 111 (H) 98 - 107 mmol/L CO2 28 21 - 32 mmol/L Anion gap 7 (L) 10 - 20 mmol/L Glucose 100 74 - 106 mg/d L BUN 18 7 - 18 mg/dL Creatinine 0.74 0.40 - 1.16 mg/dL GFR est AA >60 >60 ml/min/1.73m2 GFR est non-AA >60 >60 ml/min/1.73m2 Calcium 8.9 8.5 - 10.1 mg/dL Bilirubin, total 0.4 0.2 - 1.0 mg/dL ALT (SGPT) 15 13 - 61 U/L AST (SGOT) 9 (L) 15 - 37 U/L Alk. phosphatase 57 45 - 117 U/L Protein, total 6.4 6.4 - 8.2 g /dL Albumin 3.0 (L) 3.5 - 4.7 g/dL Globulin 3.4 1.7 - 4.7 g/dL A-G Ratio 0.9 0.7 - 2.8PROTHROMBIN TIME + INR Collection Time: 01/08/20 4:15 AMResult Value Ref Range Prothrombin time 10.6 9.4 - 11.1 sec INR 1.0 0.8 - 1.2MAGNESIUM Collection Time: 01/08/20 4:15 AMResult Value Ref Range Magnesium 2.1 1 .6 - 2.6 mg/dLTROPONIN I Collection Time: 01/08/20 4:15 AMResult Value Ref Range Troponin-I, Qt. <0.02 0.00 - 0.05 NG/MLThe billing code submitted in association with this evaluation also in cludes thetime to review patient's prior records, communicate with the nursing & physicianteams, obtai n corroborating data, and discuss the risk and benefits of theproposed management plan with the pat ient and their family. Name Value Range Interpretation Code Description Data Stephie rce(s) Supporting Document(s ) ID Date Data Source [id number] 01/08/2020 10:18:53 AM EDT [facility] Care Management InterventionsPCP Verifie d by CM: Yes(Dr. Ellen Smith)Mode of Transport at Discharge: Other (see comme nt)(Spouse, Bryant)MyChart Signup: NoDischarge Durable Medical Equipment: NoPhysical Th erapy Consult: NoOccupational Therapy Consult: NoSpeech Therapy Consult: NoCur rent Support Network: Lives with Spouse, Other(Lives with spouse, daughter 16and son, 22)The Patient and/or Patient Time Analysis Clerk was Provided with a Choic e of Providerand Agrees with the Discharge Plan?: YesName of the Patient Kyle mcrae Who was Provided with a Choice of Providerand Agrees with the Discharge Pl an: PatientFreedom of Choice List was Provided with Basic Dialogue that Suppor ts thePatient's Individualized Plan of Care/Goals, Treatment Preferences and Sh aresthe Quality Data Associated with the Providers?: YesVeteran Resource Informat ion Provided?: RefusedDischarge LocationDischarge Placement: HomeSocial worker met with the patient at bedside, who was alert, oriented andcooperative, and completed assessment. Patient resides with spouse, son (22),and daughter (16), in a private house with 0 steps to enter and 2 flights ofstairs inside the home. Elian lobo confirmed her cell phone number, ,her spouses' contact inform ation, , and also requested to add herfriend, Mira Boo, [phone], as an additional emergency contact. Priorto admission, patient was able to a mbulate and complete all ADLs independently,denies having any DME in t he home, history/current home care services/inpatientrehab services. Patien t does not anticipate having any needs at discharge andprefers outpatient follow-u p for post discharge care.Tentative discharge plan is to discharge patient home with n o new needsanticipated. Patient's spouse will transport home at discharge. CM johna vailayen for further assistance.Alexa Will, SURJITW01/08/202010:18 AM Name Value Range Interpretation Code Description Data [facility] rce(s) Supporting Document(s ) ID Date Data Source [id number] 01/08/2020 09:19:17 AM EDT [facility] Alert oriented reports comfort telemetry recording a sinus rhythm vitals arestable, pt denies palpations at this time Name Value Range Interpretation Code Description Data [facility] Supporting Document(s ) ID Date Data Source [id number] 01/08/2020 09:18:04 AM EDT [facility] Problem: Falls - Risk ofGoal: *Absence o f FallsDescription: Document Yolanda Fall Risk and appropriate interventions in theflow sheet.Outcome: Progressing Towards GoalNote: Fall Risk Interventions:Medication Inter ventions: Bed/chair exit alarm, Patient to call before gettingOOB, Teach patient to arise slowly Name Value Range Interpretation Code Description Data [facility] rce(s) Supporting Document(s ) ID Date Data Source [id number] 01/08/2020 07:30:27 AM EDT [facility] Bedside and Verbal shift change report g iven to Kiersten Galloway RN (oncomingnurse) by Jose C Braxton RN (offgoing nurse). R eport included the following information SBAR, Kardex,Intake/Output and Recent Re sults Name Value Range Interpretation Code Description Data [facility] rce(s) Supporting Document(s ) ID Date Data Source [id number] 01/08/2020 05:56:55 AM EDT [facility] History and PhysicalPatient: Paige mauro Sex: female DOA: 01/07/2020Date of : 1965 A ge: 54 y.o. LOS: LOS: 0 daysChief Complaint: tachycardic episode at home, received 6, 12 Adenosine broke tosinus tachy The again restarted rate to 130. ED g ave one more dose of 12 mgof Adenosine, now tachyHPI:Paige Armstrong is a 54 y.o. fem missy who Has hx of Hypertension andOsteoarthritis presented with SVT now sinus tachy after receiving Adenosine .Denies any chest pain sob fever or chil ls .Past Medical History:Diagnosis Date Hypertension OsteoarthritisPast Surgica l History:Procedure Laterality Date HX HIP REPLACEMENT 05/2017Family HistoryProblem Relation Age of Onset Hypertension Mother Hypertension Father Pertinent negativ es: fever chills nausea or diarrhea Pertinent positive:Social HistoryTobacco Use Smoking status: Never Smoker Smokeless tobacco: Never UsedSubstance Use Topics Alcohol use: Yes Alcohol/week: 2.0 standard drinks Types: 2 Glasses of wine per wee k Comment: sociallyPrior to Admission medicationsMedication Sig Start Date End Date Taking? Authorizing Providermetoprolol succinate (TOPROL-XL) 50 mg XL tablet Ta ke 1 Tab by mouth daily.11/24/19 Rhea Livingston MDlisinopril-hydroCHLOROthiazide (PRINZIDE, ZESTORETIC) 20-25 mg per tablet Take 1Tab by mouth daily. 10/05/19 Nguyễn Rudolph MDhydrALAZINE (APRESOLINE) 25 mg tablet TAKE 1 TABLET BY MOUTH EVERY 12 H OURS07/10/19 Rhea Livingston MDascorbic acid, vitamin C, 1,000 mg chew Take 1 Ta b by mouth daily. Provider,HistoricalMagnesium Oxide 500 m g cap Take 1 Tab by mouth daily. Provider, HistoricalCHOLECALCIFEROL, VITAMIN D3, ( VITAMIN D3 PO) Take 1 Cap by mouth daily. 48950 IU06/12/17 Provider, HistoricalAl lergiesAllergen Reactions Amlodipine PalpitationsReview of Systems[x]A comple te Review of Systems was negative except for that written in theHistory of Present Il lness[] Unable to obtain ROS due to []mental status change []sedated [] intubated[ x] System reviewed as follows:Constitutional: negative fever, negative chills, negativ e weight lossEyes: negative diplopia or visual changes, negative eye painENT: negative coryza, negative sore throatRespiratory: negative cough, hemo ptysis, dyspneaCards: negative for chest pain, palpitations, lower extremity lucian a. SinusTachyGI: negative for nausea, vomiting, diarrhea, and abdominal painGe nitourinary: negative for frequency, dysuria and hematuriaIntegument: negative for r harrison and pruritusHematologic: negative for easy bruising and gum/nose bleedingMuscu loskel: negative for myalgias, arthralgias, back pain and muscle weaknessNeurologica l: negative for headaches, dizziness, vertigo, memory problems andgait problem sBehavl/Psych: negative for feelings of anxiety, depressionPhysical Exam:Visit V italsBP (!) 139/94 (BP 1 Location: Right arm, BP Patient Position: At rest)Pulse 81Tem p 98 F (36.7 C)Resp 18Ht 5' 6" (1.676 m)Wt 79.6 kg (175 lb 8 oz)SpO2 95%BMI 28.33 k g/m Physical Exam:Physical Exam:General: Alert, cooperative, no distress, appears stated age.Eyes: Conjunctivae/corneas clear. PERRL, EOMs intact. Fundi benignE ars: Normal TMs and external ear canals both ears.Nose: Nares normal. Septum midline. Mucosa normal. No drainage or sinustenderness.Mouth/Throat: Lips, muco sa, and tongue normal. Teeth and gums normal.Neck: Supple, symmetrical, trache a midline, no adenopathy, thyroid: noenlargement/tenderness/nodules, no car otid bruit and no JVD.Back: Symmetric, no curvature. ROM normal. No CVA tenderness .Lungs: Clear to auscultation bilaterally.Heart: Regular rate and rhy thm, S1, S2 normal, no murmur, click, rub or gallop.Sinus tachyAbdomen: Soft, non-t tai. Bowel sounds normal. No masses, No organomegaly.Extremities: Extremities no rmal, atraumatic, no cyanosis or edema.Pulses: 2+ and symmetric all extre mities.Skin: Skin color, texture, turgor normal. No rashes or lesionsLymph nodes: Cervical, supraclavicular, and axillary nodes normal.Neurologic: CNII-XII intact . Normal strength, sensation and reflexes throughout.Labs Reviewed:CMP:Lab Results Component Value Date/Time NA 141 01/07/2020 06:42 PM K 3.2 (L) 01/07/2020 06:42 PM C L 107 01/07/2020 06:42 PM CO2 26 01/07/2020 06:42 PM AGAP 11 01/07/2020 06:42 PM GLU 161 (H) 01/07/2020 06:42 PM BUN 16 01/07/2020 06:42 PM CREA 1.19 (H) 2019 06:42 PM GFRAA >60 01/07/2020 06:42 PM GFRNA 50 (L) 01/07/2020 06:42 PM CA 8.7 01/07/2020 06:42 PM MG 1.9 01/07/2020 06:42 PM ALB 3.6 01/07/2020 06:42 PM TP 7.4 06:42 PM GLOB 3.8 01/07/2020 06:42 PM AGRAT 0.9 01/07/2020 06:42 PM ALT 19 01/07/2020 06:42 PMCBC:Lab ResultsComponent Value Date/Time WBC 3.4 (L) 01/07/2020 0 6:42 PM HGB 12.4 01/07/2020 06:42 PM HCT 37.7 01/07/2020 06:42 PM PLT 260 01/07/2020 0 6:42 PMAll Cardiac Markers in the last 24 hours:Lab ResultsComponent Value Date/Ti me TROIQ <0.02 01/07/2020 06:42 PMCOAGS:Lab ResultsComponent Value Date/Time PTP 10. 2 01/07/2020 06:42 PM INR 1.0 01/07/2020 06:42 PMLiver Panel:Lab ResultsComponent Value Date/Time ALB 3.6 01/07/2020 06:42 PM TP 7.4 01/07/2020 06:42 PM GLOB 3.8 0801/2020 06:42 PM AGRAT 0.9 01/07/2020 06:42 PM ALT 19 01/07/2020 06:42 PM AP 70 020 06:42 PMUrine :No results found for this or any previous visit.Microbiology:Resul ts No results found for the last 336 hours. Paige Armstrong is a 54 y.o. fem missy who Has hx of Hypertension andOsteoarthritis presented with SVT now sinus tachy after receiving Adenosine .Denies any chest pain sob fever or chil lsAssessment/PlanPrincipal Problem: SVT (supraventricular tachycardia) (HCC) (01/07/2020)Active Problems: Hypokalemia (01/07/2020) Potassium replenishedAM labs ECHOOxygen prnHx of HypertensionLopressorConsult Cardiology Dr. Rosario Status: Full CodeDVT Prophylaxis:[x] Venodynes[] Lovenox[x] H eparin[] No Lovenox or Heparin for risk of bleeding Name Value Range Interpretation Code Description Data Stephie rce(s) Supporting Document(s ) ID Date Data Source [id number] 01/08/2020 08:41:19 AM EDT [facility] Name Value Range Interpretation Description Data Sup porting Code Source(s) Document(s ) Leukocytes 3.4 K/uL 4.8-10.6 Below low normal [facility] - [#/volume] in Good Blood by [facility] Automated count [facility] Erythrocytes 3.70 4.20-5.4 Below low normal [facility] - [#/volume] in M/uL 0 Good Blood by [facility] Automated count [facility] Hemoglobin 10.8 12.0-16. Below low normal [facility] - [Mass/volume] in g/dL 0 Good Blood [facility] Hematocrit 34.3 % 36.0-47. Below low normal [facility] - [Volume 0 Good Fraction] of [facility] Blood by Hospital Automated count Erythrocyte mean 92.7 FL 81.0-94. [facility] - corpuscular 0 Good volume [Entitic [facility] volume] by Hospital Automated count Erythrocyte mean 29.2 PG 27.0-35. [facility] - corpuscular 0 Good hemoglobin [facility] [Entitic mass] [facility] by Automated count Erythrocyte mean 31.5 30.7-37. [facility] - corpuscular g/dL 3 Good hemoglobin [facility] [Mass/volume] by Automated count Erythrocyte 12.9 % 11.5-14. [facility] - distribution 0 Good width [Ratio] by [facility] Automated count [facility] Platelets 230 K/uL 130-400 [facility] - [#/volume] in Good Blood by [facility] Automated count Hospital Platelet mean 11.2 FL 9.2-11.8 [facility] - volume [Entitic Good volume] in Blood [facility] by Automated Hospital count Nucleated 0.0 PER 0 [facility] - erythrocytes/100 100 WBC Good leukocytes [facility] [Ratio] in Blood [facility] Nucleated 0.00 0.0-0.01 [facility] - erythrocytes K/uL Good [#/volume] in [facility] Segmented 67 % 48.0-72. [facility] - neutrophils/100 0 Good leukocytes in [facility] Lymphocytes/100 31 % 18.0-40. [facility] - leukocytes in [address] [facility] Monocytes/100 1 % 2.0-12.0 Below low normal [facility] - leukocytes in [facility] Eosinophils/100 1 % 0.0-7.0 [facility] - leukocytes in [facility] Basophils/100 0 % 0.0-3.0 [facility] - leukocytes in [facility] Immature 0 % [facility] - granulocytes/100 Good leukocytes in [facility] Blood by Hospital Automated count Segmented 2.3 K/UL 2.3-7.6 [facility] - neutrophils Good [#/volume] in [facility] Lymphocytes 1.1 K/UL 0.9-4.2 [facility] - [#/volume] in [facility] Monocytes 0.0 K/UL 0.1-1.7 Below low normal [facility] - [#/volume] in [facility] Eosinophils 0.0 K/UL 0.0-1.0 [facility] - [#/volume] in [facility] Basophils 0.0 K/UL 0.0-0.4 [facility] - [#/volume] in [facility] Immature 0.0 K/UL [facility] - granulocytes Good [#/volume] in [facility] Blood by Hospital Automated count Erythrocyte [facility] - morphology Good finding [facility] [Identifier] in Hospital Blood Platelet [facility] - adequacy Good [Presence] in [facility] Blood by [facility] microscopy Differential [facility] - cell count Good method - Blood [facility] ID Date Data Source [id number] 01/08/2020 07:47:15 AM EDT [facility] Name Value Range Interpretation Description Data Sup porting Code Source(s) Document(s ) Troponin 0.00-0.05 [facility] - Good I.cardiac [facility] [Mass/volume Hospital ] in Serum or Plasma (NOTE)The presence of detectable troponi n above the reference rangeindicates myocardial injury which may be due to is chemia,myocarditis, trauma, etc. Clinical correlation is necessary todetermine the significance of this finding. Sequential testing isrecommended to determine if th e typical rise and fall of cTnI isdemonstrated. Note, cardiac troponin-I has a relatively longhalf-life and may be present well after the CK MB has returne d tobaseline. cTnI results in the indeterminate/solomon zone for myocardial infarction: 0.06 to 0.59 ng/mL cTnI cutoff/range of values consistent with m yocardial infarction: 0.60 to 1.50 ng/mL ID Date Data Source [id number] 01/08/2020 05:07:04 AM EDT [facility] Name Value Range Interpretation Description Data Sup porting Code Source(s) Document(s ) Sodium 142 136-145 [facility] - [Moles/volume] in mmol/L [facility] Serum or Plasma [facility] Potassium 3.8 3.5-5.1 [facility] - [Moles/volume] in mmol/L [facility] Serum or Plasma [facility] Chloride 111 98-107 Above high [facility] - [Moles/volume] in mmol/L normal [facility] Serum or Plasma [facility] Carbon dioxide, 28 21-32 [facility] - total mmol/L Good [Moles/volume] in [facility] Serum or Plasma Hospital Anion gap in Serum 7 10-20 Below low normal [facility] - or Plasma mmol/L [facility] Glucose 100 74-106 [facility] - [Mass/volume] in mg/dL [facility] Serum or Plasma [facility] Urea nitrogen 18 7-18 [facility] - [Mass/volume] in mg/dL [facility] Serum or Plasma [facility] Creatinine 0.74 0.40-1. [facility] - [Mass/volume] in mg/dL 16 Good Serum or Plasma [facility] Glomerular >60 [facility] - filtration Good rate/1.73 sq M [facility] predicted among Hospital blacks [Volume Rate/Area] in Serum or Plasma by Creatinine-based formula (MDRD) Glomerular >60 [facility] - filtration Good rate/1.73 sq M [facility] predicted among Hospital non-blacks [Volume Rate/Area] in Serum or Plasma by Creatinine-based formula (MDRD) Calcium 8.9 8.5-10. [facility] - [Mass/volume] in mg/dL 1 Good Serum or Plasma [facility] Bilirubin.total 0.4 0.2-1.0 [facility] - [Mass/volume] in mg/dL Good Serum or Plasma [facility] Alanine 15 U/L 13-61 [facility] - aminotransferase Good [Enzymatic [facility] activity/volume] in Hospital Serum or Plasma Aspartate 9 U/L 15-37 Below low normal [facility] - aminotransferase Good [Enzymatic [facility] activity/volume] in Hospital Serum or Plasma by With P-5'-P Alkaline 57 U/L 45-117 [facility] - phosphatase Good [Enzymatic [facility] activity/volume] in Hospital Serum or Plasma Protein 6.4 6.4-8.2 [facility] - [Mass/volume] in g/dL Good Serum or Plasma [facility] Albumin 3.0 3.5-4.7 Below low normal [facility] - [Mass/volume] in g/dL Good Serum or Plasma by [facility] Bromocresol [facility] (BCP) dye binding method Globulin 3.4 1.7-4.7 [facility] - [Mass/volume] in g/dL Good Serum by [facility] Albumin/Globulin 0.9 0.7-2.8 [facility] - [Mass Ratio] in Good Serum or Plasma [facility] ID Date Data Source [id number] 01/08/2020 05:07:04 AM EDT [facility] Name Value Range Interpretation Description Data Sup porting Code Source(s) Document(s ) Magnesium 2.1 mg/dL 1.6-2.6 [facility] - Good [Mass/volume] [facility] in Serum or Hospital Plasma ID Date Data Source [id number] 01/08/2020 05:00:18 AM EDT [facility] Name Value Range Interpretation Description Data Sup porting Code Source(s) Document(s ) Prothrombin 10.6 sec 9.4-11.1 [facility] time (PT) [facility] INR in 1.0 0.8-1.2 [facility] Platelet poor [facility] plasma by Hospital Coagulation assay ID Date Data Source [id number] 01/08/2020 01:10:41 AM EDT [facility] Name Value Range Interpretation Description Data Sup porting Code Source(s) Document(s ) Troponin 0.02 0.00-0.05 [facility] I.cardiac NG/ML [facility] [Mass/volume Hospital ] in Serum or Plasma (NOTE)The presence of detectable troponi n above the reference rangeindicates myocardial injury which may be due to is chemia,myocarditis, trauma, etc. Clinical correlation is necessary todetermine the significance of this finding. Sequential testing isrecommended to determine if th e typical rise and fall of cTnI isdemonstrated. Note, cardiac troponin-I has a relatively longhalf-life and may be present well after the CK MB has returne d tobaseline. cTnI results in the indeterminate/solomon zone for myocardial infarction: 0.06 to 0.59 ng/mL cTnI cutoff/range of values consistent with m yocardial infarction: 0.60 to 1.50 ng/mL ID Date Data Source [id number] 01/07/2020 09:59:17 PM EDT [facility] [id number] [facility] [address] [facility] [id number] [phone] Paige Armstrong (Female) [id number] ES I 2 ED Dispo:ADMIT Chief Complaint: Palpitations Diagnosis: SVT (supraventricular tachycardia) (HCC) [] Current Providers: Attending: Seng Ybarra; Reuben Russell Consulting Provider: Reuben Livingston Primary Nurse: Hailee Rangel; LOGAN Simmons SN: [id number] [employer] [id number] - [facility] MrnMRN: [id number] P rint Group [id number] - [facility] Age SexDOB 1965 AGE 54 SEX Female Primary Care Provider: Ellen Singh MD Eeqderx Agents Noted Type Reaction(s)A MLODIPINE 09/05/2018 15 - Palpitatio*Date Reviewed: 01/07/2020[facility] ed by: Mack Trammell E - Review CompleteED Provider Notes: All notesHNO ID: [id number]: Ayan Ybarra is, MDService: EMERGENCYAuthor Type: PhysicianFiled: 01/07/202055Note Text:HPIPatient comes in with a tachycardic episode at homeEMS found the patient in SVT by 160 give 6 of adenosine 6 and regular 12she is no w in sinus tachycardia at 120Patient is recovered his hypertension no history of SVTNothing different today s the patient had a regular caffeinated coffeeinstead of a decafThat was early this morningNo fever chills na usea vomiting diarrheaMaintains that she is taking all of her medicationsPast Medical History:Diagnosi s Date Hypertension OsteoarthritisPast Surgical History:Procedure Laterality Date HX HIP REPLACEMENT 06/01 018Family History:Problem Relation Age of Onset Hypertension Mother Hypertension FatherSocial HistorySocioec onomic History Marital status: Spouse name: Not on file Number of children: Not on file Years o f education: Not on file Highest education level: Not on fileOccupational History 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 Financial resource strain: Not on file Food insecurity Worry: Not on file Robins bility: Not on file Transportation needs Medical: Not on file Non-medical: Not on fileTobacco Use Smo mayi status: Never Smoker Smokeless tobacco: Never UsedSubstance and Sexual Activity Alcohol use: Yes Alcoh ol/week: 2.0 standard drinks Types: 2 Glasses of wine per week Comment: socially Drug use: No Sexual activity: Not on fileLifestyle Physical activity Days per week: Not on file Minutes per session: Not on sean e Stress: Not on fileRelationships Social connections Talks on phone: Not on file Gets together: Not o n file Attends sikh service: Not on file Active member of club or organization: Not on file Attends me etings of clubs or organizations: Not on file Relationship status: Not on file Intimate partner violence Fear of current or ex partner: Not on file Emotionally abused: Not on file Physically abused: Not on file Forced sexual activity: Not on fileOther Topics Concern Not on fileSocial History Narrative Not on sean eALLERGIES: AmlodipineReview of SystemsConstitutional: Negative.HENT: Negative.Eyes: Negative.Respiratory: Neg ative.Cardiovascular: Negative.Gastrointestinal: Negative.Endocrine: Negative.Genitourinary: Negative.Musculo skeletal: Negative.Skin: Negative.Allergic/Immunologic: Negative.Neurological: Negative.Hematolo gical: Negative.Psychiatric/Behavioral: Negative.Vitals: 01/07/20 1900 01/07/20 1945 01/07/201999 0 2038BP: (!) 160/95 (!) 148/95 (!) 155/101 135/87Pulse: (!) 122 96 95 99Resp: 15 12 22Temp:SpO2: 98% 99% 1 00% 97%Weight:Height:Physical ExamHENT: Head: Normocephalic.Cardiovascular: Rate and Rhythm: Tachycardia present. Heart sounds: Normal heart sounds.Pulmonary: Effort: Pulmonary ef fort is normal. Breath sounds: Normal breath sounds.Abdominal: General: Abdomen is flat. Bowel sounds a re normal. Palpations: Abdomen is soft.Musculoskeletal: General: No swelling.Skin: General: Skin is war m and dry.Neurological: General: No focal deficit present. Mental Status: She is alert and oriented to per son, place, and time.Psychiatric: Mood and Affect: Mood normal. Behavior: Behavior normal.MDMProGabriele Claros Shashi, MD, reviewed the patient's past history, allergies andhome medications as documented in the nursing chart.Labs:Recent Results (from the past 12 hour(s))METABOLIC PANEL, COMPREHENSIVE C ollection Time: 01/07/20 6:42 PMResult Value Ref Range Sodium 141 136 - 145 mmol/L Potassium 3.2 (L) 3.5 - 5.1 mmol/L Chloride 107 98 - 107 mmol/L CO2 26 21 - 32 mmol/L Anion gap 11 10 - 20 mmol/L Glucose 161 (H) 74 - 106 mg/dL BUN 16 7 - 18 mg/dL Creatinine 1.19 (H) 0.40 - 1.16 mg/dL GFR est AA >60 >60 ml/min/1.73m2 G FR est non-AA 50 (L) >60 ml/min/1.73m2 Calcium 8.7 8.5 - 10.1 mg/dL Bilirubin, total 0.3 0.2 - 1.0 mg/dL ALT (SGPT) 19 13 - 61 U/L AST (SGOT) 14 (L) 15 - 37 U/L Alk. phosphatase 70 45 - 117 U/L Protein, total 7.4 6.4 - 8.2 g/dL Albumin 3.6 3.5 - 4.7 g/dL Globulin 3.8 1.7 - 4.7 g/dL A-G Ratio 0.9 0.7 - 2.8CBC WITH AUTOMATED DI FF Collection Time: 01/07/20 6:42 PMResult Value Ref Range WBC 3.4 (L) 4.8 - 10.6 K/uL RBC 4.16 (L) 4.20 - 5.40 M/uL HGB 12.4 12.0 - 16.0 g/dL HCT 37.7 36.0 - 47.0 % MCV 90.6 81.0 - 94.0 FL MCH 29.8 27.0 - 35.0 PG M CHC 32.9 30.7 - 37.3 g/dL RDW 12.6 11.5 - 14.0 % PLATELET 260 130 - 400 K/uL MPV 10.8 9.2 - 11.8 FL NRBC 0.0 0 PER 100 WBC ABSOLUTE NRBC 0.00 0.0 - 0.01 K/uL NEUTROPHILS 50 48.0 - 72.0 % LYMPHOCYTES 42 (H) 18.0 - 40.0 % MONOCYTES 5 2.0 - 12.0 % EOSINOPHILS 3 0.0 - 7.0 % BASOPHILS 0 0.0 - 3.0 % IMMATURE GRANULOCYTES 0 0 - 0.5 % ABS. NEUTROPHILS 1.7 (L) 2.3 - 7.6 K/UL ABS. LYMPHOCYTES 1.4 0.9 - 4.2 K/UL ABS. MONOCYTES 0.2 0.1 - 1.7 K/ UL ABS. EOSINOPHILS 0.1 0.0 - 1.0 K/UL ABS. BASOPHILS 0.0 0.0 - 0.4 K/UL ABS. IMM. GRANS. 0.0 0.0 - 0.17 K/U L DF AUTOMATEDTROPONIN I Collection Time: 01/07/20 6:42 PMResult Value Ref Range Troponin-I, Qt. <0.02 0. 00 - 0.05 NG/MLMAGNESIUM Collection Time: 01/07/20 6:42 PMResult Value Ref Range Magnesium 1.9 1.6 - 2.6 mg/dLPROTHROMBIN TIME + INR Collection Time: 01/07/20 6:42 PMResult Value Ref Range Prothrombin time 10.2 9. 4 - 11.1 sec INR 1.0 0.8 - 1.2EKG, 12 LEAD, INITIAL Collection Time: 01/07/20 6:42 PMResult Value Ref Range Ventricular Rate 118 BPM Atrial Rate 124 BPM P-R Interval 161 ms QRS Duration 92 ms Q-T Interval 316 ms QTC C alculation (Bezet) 443 ms Calculated P Arena 45 degrees Calculated R Arena 12 degrees Calculated T Arena 73 deg ce Diagnosis Sinus tachycardiaLow voltage, precordial leadsMinimal ST elevation, inferior leadsEKG:EMS EKG although shows SVT of 160 this is premedicationPost medication heart rate is somewhat in 140s to 150sEKG is s inus tach at [address]-T changesRadiology:CXR Results (Last 48 hours) 01/07/20 1940 XR CHEST PORT Final result Impression: IMPRESSION: No evidence of acute cardiopulmonary disease. Narrative: [facility] 1 viewHISTORY: Chest pain. Hypertension.COMPARISON: None.There is no evidence of acute cardiopulmonary dis ease. The heart,mediastinum,hilar regions, lungs and pleura appear to be normal. There aredegenerativechanges of the spine. The remaining visualized portions of the bony thoraxappear to be normal.CT Results (L ast 48 hours) NoneEcho Results (Last 48 hours) None<EMERGENCY DEPARTMENT CASE SUMMARY>ED Course:54 y.o . female presented to the EDDiscussed with hospitalist patient is admittedFinal Impression/Diagnosis:Encou nter Diagnoses ICD-10-CM ICD-9-CM1. SVT (supraventricular tachycardia) (HCC) I47.1 427.89Patient condition at time of disposition: GoodI have reviewed the following home medications:Prior to Admission medi cationsMedication Sig Start Date End Date Taking? Authorizing Providermetoprolol succinate (TOPROL-XL) 50 mg XL tablet Take 1 Tab by mouthdaily. 11/24/19 Rhea Livingston MDlisinopril-hydroCHLOROthiazide (PRINZI DE, ZESTORETIC) 20-25 mg per tabletTake 1 Tab by mouth daily. 10/05/19 Nguyễn Bazan MDhydrALAZINE (APRESOL INE) 25 mg tablet TAKE 1 TABLET BY MOUTH EVERY 12HOURS 07/10/19 Rhea Livingston MDascorbic acid, vitamin C, 1,000 mg chew Take 1 Tab by mouth daily.Provider, HistoricalMagnesium Oxide 500 mg cap [place] e 1 Tab by mouth daily. Provider,HistoricalCHOLECALCIFEROL, VITAMIN D3, (VITAMIN D3 PO) Take 1 Cap b y mouth daily.60991 IU 06/12/17 Provider, Horacio Brown MD I, Dennis Mao, MD, am serving as a sc ribe to document services personallyperformed by Horacio Suazo MD based on my observation and the provider 'sstatements to me.I, Horacio Suazo MD, attest that the person(s) noted above, acting as myscribe(s) noted above, has observed my performance of the services and hasdocumented them in accordance with my direction. I have personallyreviewed the above information and have ordered and reviewed thediagnostic studies, unless o therwise noted.ED Orders [id number] SHOP HELPER - ED ONLY [#[id number]] Priority: STAT Class : Hospital Performed Standing Order Information Remaining Occurrences:0/1 Interval:Contin uous Last released:01/07/2020 Released orders: [place] Jan 07, 2020 6:33 PM by: OLAYINKA YBARRA Type: -> Bedside [id number] PULSE OXIMETRY CONTINUOUS [#[id number]] Priority: STAT Class: Hospital Performed Standing Order Information Remaining Occurrences:0/1 Interval:CONTIN UOUS Last released:01/07/2020 Released orders: [place] Jan 07, 2020 6:33 PM by: OLAYINKA YBARRA [id number] PULSE OXIMETRY SPOT CHECK [#[id number]] Priority: STAT Class: Hospital Performe d Standing Order Information Remaining Occurrences:0/1 Interval:ONE TIME Last released :01/07/2020 Released orders: [place] Jan 07, 2020 6:33 PM by: OLAYINKA YBARRA [id number] OBTAIN OLD EKG [#[id number]] Priority: Routine Class: Hospital Performed Standing Order Inf ormation Remaining Occurrences:0/1 Interval:ONE TIME Last released:01/07/2020 Releas ed orders: [place] Jan 07, 2020 6:33 PM by: OLAYINKA YBARRA [id number] SHOP HELPER - ED ONLY [#[id number]] Priority: STAT Class: Hospital Performed Type: -> Bedside Released on: 020 6:33 PM [id number] PULSE OXIMETRY CONTINUOUS [#[id number]] Priority: STAT Class: H ospital Performed Released on: 01/07/2020 6:33 PM [id number] PULSE OXIMETRY SPOT CHECK [#[id number]] Priority: STAT Class: Hospital Performed Released on: 01/07/2020 6:33 PM [id number] OBTAIN OLD EKG [#[id number]] Priority: STAT Class: Hospital Performed Released on: 01/06 6:33 PM [id number] VITAL SIGNS PER UNIT ROUTINE [#[id number]] Priority: STAT Class: H ospital Performed Standing Order Information Remaining Occurrences:0/1 Interval:CONTIN UOUS Last released:01/07/2020 Released orders: [place] Jan 07, 2020 8:47 PM by: RONA SUAZO Comment:More frequently if Indicated. [id number] UP AD SONIA [#[id number]] Pr iority: STAT Class: Hospital Performed Standing Order Information Remaining Occurrences:0/1 Interval:CONTINUOUS Last released:01/07/2020 Released orders: WedJan 07, 2020 8:47 PM by: HORACIO SUAZO [id number] APPLY/MAINTAIN SEQUENTIAL COMPRESSIO* [#[id number]] Priority: STAT Class: H ospital Performed Standing Order Information Remaining Occurrences:0/1 Interval:CONTIN UOUS Last released:01/07/2020 Released orders: WedJan 07, 2020 8:47 PM by: RONA SUAZO [id number] VITAL SIGNS PER UNIT ROUTINE [#[id number]] Priority: STAT Class: Hospital Performe d Comment:More frequently if Indicated. Released on: 01/07/2020 8:47 PM [id number] UP AD SONIA [#[id number]] Priority: STAT Class: Hospital Performed Released on: 01/07/2020 8: 47 PM [id number] APPLY/MAINTAIN SEQUENTIAL COMPRESSIO* [#[id number]] Priority: STAT Class: Hospital Performe d Released on: 01/07/2020 8:47 PM [id number] RT--OXYGEN CANNULA [#[id number]] Priority : STAT Class: Hospital Performed Standing Order Information Remaining Occurrences:0/1 Inter mirna:CONTINUOUS Last released:01/07/2020 Released orders: WedJan 07, 2020 6:33 PM by: OLAYINKA BENJAMIN LPM -> 2 Indications for O2? -> CHEST PAIN [id number] RT--OXYGEN CANNULA [#[id number]] Priority: STAT Class: Hospital Performed LPM -> 2 Indications for O2? -> [facility] PAIN Released on: 01/07/2020 6:33 PM [id number] DIET NPO [#[id number]] Cance led Priority: STAT Class: Hospital Performed Canceled by HORACIO SUAZO on WedJan 07, 2020 8:47 P M Reason: None Comment: Standing Order Information Remaining Occurrences:0/1 Inter mirna:DIET EFFECTIVE NOW Last released:01/07/2020 Released orders: WedJan 07, 2020 6:33 PM by: OLAYINKA YBARRA NPO options: -> With Meds [id number] DIET NPO [#[id number] ] Canceled Priority: STAT Class: Hospital Performed Canceled by HORACIO SUAZO on WedJan 07, 2020 8:47 PM Reason: None Comment: NPO options: -> With Meds Released on: 01/07/2020 6: 33 PM [id number] DIET CARDIAC [#[id number]] Priority: STAT Class: Hospital Performe d Standing Order Information Remaining Occurrences:0/1 Interval:DIET EFFECTIVE NOW Las t released:01/07/2020 Released orders: WedJan 07, 2020 8:47 PM by: HORACIO SUAZO re: -> Regular [id number] DIET CARDIAC [#[id number]] Priority: STAT Class: H ospital Performed Texture: -> Regular Released on: 01/07/2020 8:47 PM [id number] SALINE LOCK IV [#[id number]] Priority: STAT Class: Hospital Performed Standing Order Information Remaining Occurrences:0/1 Interval:ONE TIME Last released:01/07/2020 Released orders : WedJan 07, 2020 6:33 PM by: OLAYINKA YBARRA IVT11 SALINE LOCK IV [# [id number]] Priority: STAT Class: Hospital Performed Released on: 01/07/2020 6:33 PM [id number] METABO LIC PANEL, COMPREHENSIVE [#[id number]] Priority: STAT Class: ER Collect Standing Order Info rmation Remaining Occurrences:0/1 Interval:ONE TIME Last released:01/07/2020 Release d orders: WedJan 07, 2020 6:33 PM by: OLAYINKA YBARRA [id number] CBC WITH AUTOMATED DIFF [#[id number]] Priority: STAT Class: ER Collect Standing Order Information Remaining Occurre nces:0/1 Interval:ONE TIME Last released:01/07/2020 Released orders: WedJan 06 6:33 PM by: OLAYINKA YBARRA [id number] TROPONIN I [#[id number]] Priority: STAT Class: ER Collect Standing Order Information Remaining Occurrences:0/1 Interval:ONE TI ME Last released:01/07/2020 Released orders: [place] Jan 07, 2020 6:33 PM by: OLAYINKA YBARRA [id number] MAGNESIUM [#[id number]] Priority: STAT Class: ER Collect Sta nding Order Information Remaining Occurrences:0/1 Interval:ONE TIME Last released:0 01/07/2020 Released orders: [place] Jan 07, 2020 6:33 PM by: OLAYINKA YBARRA [id number] PROTHROMBIN TI ME + INR [#[id number]] Priority: STAT Class: ER Collect Standing Order Information Remaining Occurrences:0/1 Interval:ONE TIME Last released:01/07/2020 Released orders : [place] Jan 07, 2020 6:33 PM by: OLAYINKA YBARRA [id number] METABOLIC PANEL, COMPREHENSIVE [# [id number]] Priority: STAT Class: ER Collect Specimen Source: Plasma Specimen Collected: 01/07/2020 6:42 PM Resulting Agency: [facility] Test ID: MPL Released on: 01/07/2020 6:33 PM [id number] CBC WITH AUTOMATED DIFF [#[id number]] Priority: STAT Class: ER Collect Speci men Source: Whole Blood Specimen Collected: 01/07/2020 6:42 PM Resulting Agency: [facility] Test ID: [id number] Released on: 01/07/2020 6:33 PM [id number] TROPONIN I [#[id number]] Priority: STAT Class: ER Collect Specimen Source: Plasma Specimen Collected: 01/2020 6:42 PM Resulting Agency: [facility] Test ID: TROIP Released on: 01/07/20 6:33 PM [id number] MAGNESIUM [#[id number]] Priority: STAT Class: E R Collect Specimen Source: Plasma Specimen Collected: 01/07/2020 6:42 PM Resulting Agency: [facility] Test ID: MGPL Released on: 01/07/2020 6:33 PM [id number] PROTHROMBIN TIME + INR [#[id number]] Priority: STAT Class: ER Collect Specimen Source: Plasma Specimen Collec cecile: 01/07/2020 6:42 PM Resulting Agency: [facility] Test ID: APTHR Released o n: 01/07/2020 6:33 PM [id number] CBC WITH AUTOMATED DIFF [#[id number]] Priority: Routine Clas s: ER Collect Standing Order Information Remaining Occurrences:3/3 Interval:DAILY [id number] METABOLIC PANEL, COMPREHENSIVE [#[id number]] Priority: Routine Class: ER Collect Standing Order Information Remaining Occurrences:3/3 Interval:DAILY [id number] PROTHROMBIN DEISY E + INR [#[id number]] Priority: Routine Class: ER Collect Standing Order Information Remaining Occurrences:/ Interval:TOMORROW AM [id number] MAGNESIUM [# [id number]] Priority: Routine Class: ER Collect Standing Order Information Remaining Occurrences:3 /3 Interval:DAILY [id number] TROPONIN I [#[id number]] Priority: Timed Cl ass: ER Collect Standing Order Information Remaining Occurrences:2/3 Interval:EVERY 6 HRS Last released:01/07/2020 Released orders: Sun Jan 07, 2020 8:47 PM by: HORACIO SUAZO [id number] TROPONIN I [#[id number]] Priority: Timed Class: ER Collect Res ulting Agency: [facility] Test ID: TROIP Released on: 01/07/2020 8:47 PM [id number] EKG, 12 LEAD, INITIAL [#[id number]] Priority: STAT Class: Hospital Performed Stand ing Order Information Remaining Occurrences:0/1 Interval:ONE TIME Last released:0 01/07/2020 Released orders: [place] Jan 07, 2020 6:33 PM by: OLAYINKA YBARRA Reason for Exam: -> Chest Pain [id number] EKG, 12 LEAD, INITIAL [#[id number]] Priority: STAT Class: H ospital Performed Specimen Collected: 01/07/2020 6:42 PM Resulting Agency: [facility] Test ID: ECG 1026 Reason for Exam: -> Chest Pain Released on: 01/07/2020 6:33 PM ASPIRIN 81 MG CHEWABLE TAB [#[id number]] Priority: STAT Class: Normal ADENOSINE 3 MG/ML IV SOLN [#[id number]] Priority: STAT Class: Normal DILTIAZEM HCL 5 MG/ML IV SOLN [#[id number]] Priority: STAT Class: Normal SODIUM CHLORIDE 0.9% BOLUS IV [#[id number]] Priority: STAT Class: Normal METOPROLOL TARTRATE 5 MG/5 ML IV SOLN [#[id number]] Priority: STAT Class: N ormal METOPROLOL TARTRATE 5 MG/5 ML IV SOLN [#[id number]] Priority: STAT Class: Normal POTASSIUM CHLORIDE SR 20 MEQ TAB, PA* [#[id number]] Priority: STAT Class: Normal METOPROLOL TARTR ATE 25 MG TAB [#[id number]] Priority: STAT Class: Normal HEPARIN (PORCINE) 5,000 UNIT/ML IJ S* [#[id number]] Priority: STAT Class: Normal METOPROLOL TARTRATE 25 MG TAB [# [id number]] Priority: STAT Class: Normal [id number] XR CHEST PORT [#[id number]] Pr iority: STAT Class: Hospital Performed Standing Order Information Remaining Occurrences:0/1 Interval:ONE TIME Last released:01/07/2020 Released orders: [place] Jan 07, 2020 6:33 PM by: OLAYINKA YBARRA Reason for Exam -> Chest Pain [id number] XR CHEST PORT [#[id number]] Priority: STAT Class: Hospital Performed Specimen Collected: 01/07/2020 7:46 PM Resultin g Agency: [facility] Test ID: [id number] Reason for Exam -> Chest Pain Released on: 01/07/2020 6 :33 PM [id number] INITIAL PHYSICIAN ORDER: INPATIENT [#[id number]] Priority: Routine Class: ADT Pend Hyman sfer Standing Order Information Remaining Occurrences:0/1 Interval:ONE TIME Last relea sed:01/07/2020 Released orders: Sun Jan 07, 2020 8:47 PM by: HORACIO SUAZO [facility]: [facility] Certified Necessary for the Following Reasons -> 3- . P- a- t- i- e- n- t r- e- c- e- i- v- i- n- g t- r- e- a- t- m- e- n- t t- h- a- t c- a- n o- n- l- y b- e p- r- o- v- i- d- e- d i- n a- n i- n- p- a- t- i- e- n- t s- e- t- t- i- n- g (- f- u- r- t- h- e- r c- l- a- r- i- f- i- c- a- t- i- o- n i- n H- &- P d- o- c- u- m- e- n- t- a- t- i- o- n- ) Admitting Diagnosis -> SVT (supraventricular tachycardia) (HCC) -> Hypokalemia Admitting Physician -> HORACIO SUAZO Attending Physician -> HORACIO SUAZO Estimated Length of Stay -> 3-4 Midnights Discharge Plan: -> Home with Office Follow-up [id number] INI TIAL PHYSICIAN ORDER: INPATIENT [#[id number]] Priority: Routine Class: ADT Pend Transfer Status: -> INPATIENT Inpatient Hospitalization Certified Necessary for the Following Reasons -> 3- . P- a- t- i- e- n- t r- e- c- e- i- v- i- n- g t- r- e- a- t- m- e- n- t t- h- a- t c- a- n o- n- l- y b- e p- r- o- v- i- d- e- d i- n a- n i- n- p- a- t- i- e- n- t s- e- t- t- i- n- g (- f- u- r- t- h- e- r c- l- a- r- i- f- i- c- a- t- i- o- n i- n H- &- P d- o- c- u- m- e- n- t- a- t- i- o- n- ) Admitting Diagnosis -> SVT (supraventricular tachycardia) (HCC) -> Hypokalemia Admitting Physician -> HORACIO SUAZO Attending Physician -> HORACIO SUAZO Estimated Length of Stay -> 3-4 Midnights Discharge Plan: -> Home with Office Follow-up Released o n: 01/07/2020 8:47 PM COD2 FULL CODE [#[id number]] Priority: STAT Class: Hospital Performed Standing Order Information Remaining Occurrences:0/1 Interval:CONTIN UOUS Last released:01/07/2020 Released orders: [place] Jan 07, 2020 8:47 PM by: RONA SUAZO COD2 FULL CODE [#[id number]] Priority: STAT Class: Hospital Performe d Released on: 01/07/2020 8:47 PM [id number] ECHO ADULT COMPLETE [#[id number]] Priority : Routine Class: Hospital Performed Standing Order Information Remaining Occurrences:0/1 Int erval:ONE TIME Last released:01/07/2020 Released orders: [place] Jan 07, 2020 8:47 PM by: HORACIO KURTZ Echo Contrast Question -> Yes [id number] ECHO ADULT COMPLETE [#[id number]] Priority: Routine Class: Hospital Performed Echo Contrast Question -> Yes Released on: 01/07/20 20 8:47 PM CON43 IP CONSULT TO CARDIOLOGY [#[id number]] Priority: Routine Class : Hospital Performed Standing Order Information Remaining Occurrences:0/1 Interval:ONE TI ME Last released:01/07/2020 Released orders: [place] Jan 07, 2020 8:49 PM by: RONA SUAZO Reason for Consult: -> SVT Did you call or speak to the consulting provider? -> No Consult To -> cardiology Schedule When? -> TODAY CON43 IP CONSULT TO CARDIOLOGY [#[id number]] Priority: Routine Class: Hospital Performed Reason for Consult: -> SVT Did you call or speak to the consulting provider? -> No Consult To -> cardiology Schedule When? -> TODAY Released on: 01/07/2020 8:49 Paige Chi MR#: [id number] * Rm: 371-01Ht: 5' 6" Wt: 175 lb Code: Full Code Iso:Diagnosis:SVT (supraventricular tachycardia) ([facility]) [I4 7.1]Allergies: Amlodipine --------- Current as of: 01/07/202158 GI=Given HE=Held NB= New Bag --aspirin chewable tablet 162 mg #[id number] Admin Amount: 2 Tab (2 x 81 mg Tab) Ordered Dose: 162 mg Route: Oral Freq: N OW Start Date: 01/07/20 Administration times (back 96 hours, ahead 96 hours): : 1849GI -----adenosine (ADENOCARD) injection 12 mg #[id number] Admin Amount: 4 mL = 12 mg of 3 mg/mL Ordered Dose: 12 mg Route: Int raVENous Freq: NOW Start Date: 01/07/20 Administration times (back 96 hours, [facility] ad 96 hours): 01/07/20: 1834HE 1940HE -----sodium chloride 0.9 % bolus infusion 1,000 mL #[id number] Admin Amount: 1,000 mL Ordered Dose: 1,000 mL Route: IntraVENous Freq: ONC E Start Date: 01/07/20 Rate: 1,000 mL/hr Duration: 60 Minutes Administr ation times (back 96 hours, ahead 96 hours): 01/07/20: 1852NB -----metoprolol (LOPRESSOR) injection 5 mg #[id number] Admin Amount: 5 mL = 5 mg of 1 mg/mL Ordered Dose: 5 mg Route: IntraVENo us Freq: NOW Start Date: 01/07/20 Administration times (back 96 hours, [facility] ad 96 hours): 01/07/20: 1932GI -----potassium chloride (K-DUR, KLOR-CON) SR tablet 40 mEq #[id number] Admin Amount: 2 Tab (2 x 20 mEq Tab) Ordered Dose: 40 mEq Route: Ora l Freq: NOW Start Date: 01/07/20 Administration times (back 96 hours, ahe ad 96 hours): 01/07/20: 1959GI -----metoprolol tartrate (LOPRESSOR) tablet 25 mg #[id number] Admin Amount: 1 Tab (1 x 25 mg Tab) Ordered Dose: 25 mg Route: Ora l Freq: NOW Start Date: 01/07/20 Administration times (back 96 hours, ahe ad 96 hours): 01/07/20: 1958Paige Pizarro MR#: [id number] * Rm: [phone] t: 5' 6" Wt: 175 lb Code: Full Code Iso:Diagnosis:SVT (supraventricular tachycardia) ([facility]) [I4 7.1]Allergies: Amlodipine --------- Current as of: 01/07/202158 GI=Given HE=Held NB= New Bag --heparin (porcine) injection 5,000 Units #[id number] Admin Amount: 1 mL = 5,000 Units of 5,000 Units/mL Ordered Dose: 5,000 Units Ro tiffany: SubCUTAneous Freq: EVERY 12 HOURS Start Date: 01/07/20 Administration times (back 96 ho urs, ahead 96 hours): 01/07/20: 204701/08/20: 84701/09/20: 84701/10/20: 84701/11/20: 847 2047 ---metoprolol tartrate (LOPRESSOR) tablet 25 mg #[id number] Admin Amount: 1 Tab (1 x 25 mg Tab) Ordered Dose: 25 mg Route: Ora l Freq: 2 TIMES DAILY Start Date: 01/07/20 Administration times (back 96 hours, ahe ad 96 hours): 01/07/20: 214801/08/20: 09 1800 01/09/20: 09 1800 01/10/20: 09 1800 0: 0900 1800 ED Current OP Medicationsmetoprolol succinate (TOPROL- XL) 50 mg XL tabletSig:Take 1 Tab by mouth daily.Dispense Amount:90 TabStart Date:11/24/2019End Date:Doc. Pro vider: Rhea Livingston MDlisinopril- hydroCHLOROthiazide (PRINZIDE, ZESTORETIC) 20-25 mg per tabletSig:Take 1 Tab by mouth daily.Dispense Amount:90 TabStart Date:10/05/2019End Date:Doc. Provider: Nguyễn Bazan MDh ydrALAZINE (APRESOLINE) 25 mg tabletSig:TAKE 1 TABLET BY MOUTH EVERY 12 HOURSDispense Amount:180 TabStart Jorge e:07/10/2019End Date:Doc. Provider: Rhea Livingston MDascorbic acid, vitamin C, 1,000 mg chewSig:Take 1 Tab b y mouth daily.Dispense Amount:Start Date:End Date:Doc. Provider: Laura MoodyMagnesium Oxide 500 mg capSig:Take 1 Tab by mouth daily.Dispense Amount:Start Date:End Date:Doc. Provider: Provider, Historical CHOLECALCIFEROL, VITAMIN D3, (VITAMIN D3 PO)Sig:Take 1 Cap by mouth daily. 81247 IUDispense Amount:Start Jorge e:06/12/2017End Date:Doc. Provider: Provider, Historical ED Prescriptions None on FileFollow-up InformationFollow-up With:Horacio Suazo MDDetails:Comments:C ontact Info:[address] [place] [phone] Name Value Range Interpretation Code Description Data Stephie rce(s) Supporting Document(s ) ID Date Data Source [id number] 01/07/2020 09:04:34 PM EDT [facility] TRANSFER - OUT REPORT:Verbal report give n to [place] ASCENCIO(name) on Paige Armstrong being transferred to (unit) for routine prog ression of careReport consisted of patient's Situation, Background, Assessment andRec ommendations(SBAR).Information from the following report(s) SBAR, Kardex and ED Summary wasreviewed with the receiving nurse.Lines:Peripheral IV 01/07/20 Right Wrist (Active)Site Assessment Clean, dry, & intact 01/07/20 1851Phlebitis Assessment 0 01/07/20 1851Infiltration Assessment 0 01/07/20 1851Dressing Status Clean, dry, & intact 01/07/20 1851Hub Color/Line Status [place];Infusing 01/07/20 1851Opportunity f or questions and clarification was provided.Patient transported with: Monit orO2 @ 2 litersRegistered Nurse Name Value Range Interpretation Code Description Data Stephie rce(s) Supporting Document(s ) ID Date Data Source [id number] 01/07/2020 08:56:49 PM EDT [facility] HPIPatient comes in with a tachycardic e pisode at homeEMS found the patient in SVT by 160 give 6 of adenosine 6 and regular 12 she isnow in sinus tachycardia at 120Patient is recovered his hypertension no history of SVTNothing different today was the patient had a regular caffeinated coffee insteadof a decafThat was early this morningNo fever chills nausea vomiting d iarrheaMaintains that she is taking all of her medicationsPast Medical History:Diag nosis Date Hypertension OsteoarthritisPast Surgical History:Procedure Laterality Da te HX HIP REPLACEMENT 05/2017Family History:Problem Relation Age of Onset H ypertension Mother Hypertension FatherSocial HistorySocioeconomic History Marital st atus: Spouse name: Not on file Number of children: Not on file Years o f education: Not on file Highest education level: Not on fileOccupational History Occupation: Occupation therapySocial Needs Financial resource strain: Not on file Food insecurity Worry: Not on file Inability: Not on file Transportation n eeds Medical: Not on file Non-medical: Not on fileTobacco Use Smoking status: Cassidy conklin Smoker Smokeless tobacco: Never UsedSubstance and Sexual Activity Alcoh ol use: Yes Alcohol/week: 2.0 standard drinks Types: 2 Glasses of wine per wee k Comment: socially Drug use: No Sexual activity: Not on fileLifestyle Physical activity Days per week: Not on file Minutes per session: Not on file Stress : Not on fileRelationships Social connections Talks on phone: Not on file Gets together: Not on file Attends sikh service: Not on file Active m ember of club or organization: Not on file Attends meetings of clubs or organizatio ns: Not on file Relationship status: Not on file Intimate partner violence Fear of current or ex partner: Not on file Emotionally abused: Not on file Physica lly abused: Not on file Forced sexual activity: Not on fileOther Topics Concer n Not on fileSocial History Narrative Not on fileALLERGIES: AmlodipineReview of Sy stemsConstitutional: Negative.HENT: Negative.Eyes: Negative.Respiratory: Neg ative.Cardiovascular: Negative.Gastrointestinal: Negative.Endo crine: Negative.Genitourinary: Negative.Musculoskeletal: Negative.Skin: Negative.Allergic/Immunologic: Negative.Neurological: Negative.Hematolo gical: Negative.Psychiatric/Behavioral: Negative.Vitals: 01/07/20 1900 01/07/20 19401/07/20199901/07/202037BP: (!) 160/95 (!) 148/95 (!) 155/101 135/87Puls e: (!) 122 96 95 99Resp: 15 12 22Temp:SpO2: 98% 99% 100% 97%Weight:Height:Physical E xamHENT: Head: Normocephalic.Cardiovascular: Rate and Rhythm: Tachycardia present. Heart sounds: Normal heart sounds.Pulmonary: Effort: Pulmonary effort is normal. Breath sounds: Normal breath sounds.Abdominal: Genera l: Abdomen is flat. Bowel sounds are normal. Palpations: Abdomen is soft.Musculoskel etal: General: No swelling.Skin: General: Skin is warm and dry.Neurological: Gen eral: No focal deficit present. Mental Status: She is alert and oriented to per son, place, and time.Psychiatric: Mood and Affect: Mood normal. Behavior: Behavio r normal.MDMProcedGabriele Blue Shashi, MD, reviewed the patient's past history, all ergies and homemedications as documented in the nursing chart.Labs:Recent Results (f rom the past 12 hour(s))METABOLIC PANEL, COMPREHENSIVE Collection Time: 01/07/20 6:42 PMResult Value Ref Range Sodium 141 136 - 145 mmol/L Potassium 3.2 (L) 3.5 - 5.1 mmol/L Chloride 107 98 - 107 mmol/L CO2 26 21 - 32 mmol/L Anion gap 11 10 - 20 mmol /L Glucose 161 (H) 74 - 106 mg/dL BUN 16 7 - 18 mg/dL Creatinine 1.19 (H) 0.40 - 1.16 mg/dL GFR est AA >60 >60 ml/min/1.73m2 GFR est non-AA 50 (L) >60 ml/min/1.73m2 Calc ium 8.7 8.5 - 10.1 mg/dL Bilirubin, total 0.3 0.2 - 1.0 mg/dL ALT (SGPT) 19 13 - 61 U/ L AST (SGOT) 14 (L) 15 - 37 U/L Alk. phosphatase 70 45 - 117 U/L Protein, tot al 7.4 6.4 - 8.2 g/dL Albumin 3.6 3.5 - 4.7 g/dL Globulin 3.8 1.7 - 4.7 g/dL A-G Rat io 0.9 0.7 - 2.8CBC WITH AUTOMATED DIFF Collection Time: 01/07/20 6:42 PMResult Value Ref Range WBC 3.4 (L) 4.8 - 10.6 K/uL RBC 4.16 (L) 4.20 - 5.40 M/uL HGB 12.4 1 2.0 - 16.0 g/dL HCT 37.7 36.0 - 47.0 % MCV 90.6 81.0 - 94.0 FL MCH 29.8 27.0 - 35.0 PG MCHC 32.9 30.7 - 37.3 g/dL RDW 12.6 11.5 - 14.0 % PLATELET 260 130 - 400 K/uL MPV 10.8 9.2 - 11.8 FL NRBC 0.0 0 PER 100 WBC ABSOLUTE NRBC 0.00 0.0 - 0.01 K/uL NEUTR OPHILS 50 48.0 - 72.0 % LYMPHOCYTES 42 (H) 18.0 - 40.0 % MONOCYTES 5 2.0 - 12.0 % E OSINOPHILS 3 0.0 - 7.0 % BASOPHILS 0 0.0 - 3.0 % IMMATURE GRANULOCYTES 0 0 - 0.5 % ABS. NEUTROPHILS 1.7 (L) 2.3 - 7.6 K/UL ABS. LYMPHOCYTES 1.4 0.9 - 4.2 K/UL ABS. MONO CYTES 0.2 0.1 - 1.7 K/UL ABS. EOSINOPHILS 0.1 0.0 - 1.0 K/UL ABS. BASOPHILS 0.0 0.0 - 0.4 K/UL ABS. IMM. GRANS. 0.0 0.0 - 0.17 K/UL DF AUTOMATEDTROPONIN I Collection Time: 01/07/20 6:42 PMResult Value Ref Range Troponin-I, Qt. <0.02 0.00 - 0.05 NG/MLM AGNESIUM Collection Time: 01/07/20 6:42 PMResult Value Ref Range Magnesium 1.9 1 .6 - 2.6 mg/dLPROTHROMBIN TIME + INR Collection Time: 01/07/20 6:42 PMResult Value Ref Range Prothrombin time 10.2 9.4 - 11.1 sec INR 1.0 0.8 - 1.2EKG, 12 LEAD, INITIAL Collection Time: 01/07/20 6:42 PMResult Value Ref Range Ventricular Rat e 118 BPM Atrial Rate 124 BPM P-R Interval 161 ms QRS Duration 92 ms Q-T Interval 3 16 ms QTC Calculation (Bezet) 443 ms Calculated P Arena 45 degrees Calculated R Arena 12 degrees Calculated T Arena 73 degrees Diagnosis Sinus tachycardiaLow voltage, precordial leadsMinimal ST elevation, inferior leadsEKG:EMS EKG alt zuleyma shows SVT of 160 this is premedicationPost medication heart rate is somewhat in 140s to 150sEKG is sinus tach at [address]-T changesRadiol ogy:CXR Results (Last 48 hours) 01/07/201939 XR CHEST PORT Final result Impress ion: IMPRESSION: No evidence of acute cardiopulmonary disease. Narrative: [facility] 1 viewHISTORY: Chest pain. Hypertension.COMPARISON: None.There is n o evidence of acute cardiopulmonary disease. The heart, mediastinum,hilar regions, uzma ngs and pleura appear to be normal. There are degenerativechanges of the spine. The re maining visualized portions of the bony thoraxappear to be normal.CT Results (L ast 48 hours) NoneEcho Results (Last 48 hours) None<EMERGENCY DEPARTMENT CASE LEONARD MMARY>ED Course:54 y.o. female presented to the EDDiscussed with hospitalist patient is admittedFinal Impression/Diagnosis:Encounter Diagnoses ICD-10-CM ICD-9-CM1. SVT (supraventricular tachycardia) [facility] I47.1 427.89Patient condition at time of disposition: GoodI have reviewed the following home medications: Prior to Admission medicationsMedication Sig Start Date End Date Taking? Authorizing Providermetoprolol succinate (TOPROL-XL) 50 mg XL tablet Take 1 Tab by mouth daily. Rhea Livingston MDlisinopril-hydroCHLOROthiazide (PRINZI DE, ZESTORETIC) 20-25 mg per tablet Take 1Tab by mouth daily. 10/05/19 Nguyễn Bazan MDhydrALAZINE (APRESOLINE) 25 mg tablet TAKE 1 TABLET BY MOUTH EVERY 12 HOURS07/01 Rhea Livingston MDascorbic acid, vitamin C, 1,000 mg chew Take 1 Tab by m outh daily. Provider,HistoricalMagnesium Oxide 500 mg cap Take 1 Tab by mouth louisa ly. Provider, HistoricalCHOLECALCIFEROL, VITAMIN D3, (VITAMIN D3 PO) Take 1 Cap b y mouth daily. [id number] IU06/12/17 Provider, Horacio Brown MD I, Olayinka patterson MD, am serving as a scribe to document services personallyperformed by Reuben Suazo MD based on my observation and the provider'sstatements to me.I, Jayson Suazo MD, attest that the person(s) noted above, acting as myscribe(s) noted above , has observed my performance of the services and hasdocumented them in accordance wit h my direction. I have personally reviewed theabove information and have ordered an d reviewed the diagnostic studies, unlessotherwise noted. Name Value Range Interpretation Code Description Data Stephie rce(s) Supporting Document(s ) ID Date Data Source [id number] 01/07/2020 07:47:36 PM EDT [facility] CHEST 1 viewHISTORY: Chest pain. Hyperte nsion.COMPARISON: None.There is no evidence of acute cardiopulmonary disease. The he art, mediastinum,hilar regions, lungs and pleura appear to be normal. There are de generativechanges of the spine. The remaining visualized portions of the bony thoraxap pear to be normal. Name Value Range Interpretation Description Data Sup porting Code Source(s) Document(s ) IMP IMPRESSION: No [facility] evidence of acute [facility] disease. Signing date/time: 01/07/2020 7:47 PMSig delia by: SHARAN OLSON ID Date Data Source [id number] 01/07/2020 07:19:38 PM EDT [facility] Report given to Abigail Name Value Range Interpretation Code Description Data [facility] rce(s) Supporting Document(s ) ID Date Data Source [id number] 01/07/2020 07:19:12 PM EDT [facility] Dr. Ybarra aware that heart rate continues to go up and and down Name Value Range Interpretation Code Description Data Stephie rce(s) Supporting Document(s ) ID Date Data Source [id number] 01/07/2020 06:57:49 PM EDT [facility] Pt BIBA from home for rapid heart beat, found in SVT by EMS, EMS gave 6mg andthen 12 mg of adenosine, rhythm broke for about a minute and then restarted at arate of 130. EMS gave another 12mg of adenosine on ar rival to ED, pt now insinus tachycardia at 108 Name Value Range Interpretation Code Description Data Stephie rce(s) Supporting Document(s ) ID Date Data Source [id number] 01/07/2020 07:33:04 PM EDT [facility] Name Value Range Interpretation Description Data Sup porting Code Source(s) Document(s ) Troponin 0.00-0.05 [facility] I.cardiac [facility] [Mass/volume Hospital ] in Serum or Plasma (NOTE)The presence of detectable troponi n above the reference rangeindicates myocardial injury which may be due to is chemia,myocarditis, trauma, etc. Clinical correlation is necessary todetermine the significance of this finding. Sequential testing isrecommended to determine if th e typical rise and fall of cTnI isdemonstrated. Note, cardiac troponin-I has a relatively longhalf-life and may be present well after the CK MB has returne d tobaseline. cTnI results in the indeterminate/solomon zone for myocardial infarction: 0.06 to 0.59 ng/mL cTnI cutoff/range of values consistent with m yocardial infarction: 0.60 to 1.50 ng/mL ID Date Data Source [id number] 01/07/2020 07:33:[address] [facility] Value Range Interpretation Description Data Sup porting Code Source(s) Document(s ) Sodium 141 136-145 [facility] [Moles/volume] mmol/L [facility] in Serum or Hospital Plasma Potassium 3.2 3.5-5.1 Below low normal [facility] [Moles/volume] mmol/L [facility] in Serum or Hospital Plasma Chloride 107 98-107 [facility] [Moles/volume] mmol/L [facility] in Serum or Hospital Plasma Carbon 26 21-32 [facility] dioxide, total mmol/L [facility] [Moles/volume] Hospital in Serum or Plasma Anion gap in 11 10-20 [facility] Serum or mmol/L [facility] Plasma Hospital Glucose 161 74-106 Above high normal [facility] [Mass/volume] mg/dL [facility] in Serum or Hospital Plasma Urea nitrogen 16 mg/dL 7-18 [facility] [Mass/volume] [facility] in Serum or Hospital Plasma Creatinine 1.19 0.40-1.1 Above high normal [facility] - Goo d [Mass/volume] mg/dL 6 [facility] in Serum or Hospital Plasma Glomerular >60 [facility] filtration [facility] rate/1.73 sq M Hospital predicted among blacks [Volume Rate/Area] in Serum or Plasma by Creatinine-bas ed formula (MDRD) Glomerular 50 >60 Below low normal [facility] Good filtration ml/min/1 [facility] rate/1.73 sq M .73m2 Hospital predicted among non-blacks [Volume Rate/Area] in Serum or Plasma by Creatinine-bas ed formula (MDRD) (NOTE)Estimated GFR is calculated using the Modification of Diet in RenalDisease (MDRD) Study equation, reported for both Americans(GFRAA) and non- Americans (GFRNA), and normalized to 1.7 [id number] surface area. The physician must decide which value applies tothe patient . The MDRD study equation should only be used inindividuals age 18 or older. It has no t been validated for thefollowing: women, patients with serious comorbid co nditions,or on certain medications, or persons with extremes of body size,muscl e mass, or nutritional status. Calcium [Mass/volume] in 8.7 mg/dL 8.5-10.1 [facility] Good Serum or Plasma [facility] ital Bilirubin.total 0.3 mg/dL 0.2-1.0 [facility] - Good [Mass/volume] in Serum or [facility] Plasma Alanine aminotransferase 19 U/L 13-61 [facility] - Good [Enzymatic activity/volume] [facility] in Serum or Plasma Aspartate aminotransferase 14 U/L 15-37 Below low normal [facility] Good [Enzymatic activity/volume] [facility] in Serum or Plasma by With P-5'-P Alkaline phosphatase 70 U/L 45-117 [facility] - G ood [Enzymatic activity/volume] [facility] in Serum or Plasma Protein [Mass/volume] in 7.4 g/dL 6.4-8.2 [facility] Serum or Plasma [facility] Albumin [Mass/volume] in 3.6 g/dL 3.5-4.7 [facility] Good Serum or Plasma by [facility] ospital Bromocresol purple (BCP) dye binding method Globulin [Mass/volume] in 3.8 g/dL 1.7-4.7 [facility] - Good Serum by calculation [facility] Albumin/Globulin [Mass 0.9 0.7-2.8 [facility] - Good Ratio] in Serum or Plasma [facility] ID Date Data Source [id number] 01/07/2020 07:33:04 PM EDT [facility] Name Value Range Interpretation Description Data Sup porting Code Source(s) Document(s ) Magnesium 1.9 mg/dL 1.6-2.6 [facility] [Mass/volume] [facility] in Serum or Hospital Plasma ID Date Data Source [id number] 01/07/2020 07:25:13 PM EDT [facility] Name Value Range Interpretation Description Data Sup porting Code Source(s) Document(s ) Prothrombin 10.2 sec 9.4-11.1 [facility] time (PT) [facility] INR in 1.0 0.8-1.2 [facility] - Good Platelet poor [facility] plasma by Hospital Coagulation assay ID Date Data Source [id number] 01/07/2020 07:19:32 PM EDT [facility] Name Value Range Interpretation Description Data Sup porting Code Source(s) Document(s ) Leukocytes 3.4 K/uL 4.8-10.6 Below low normal [facility] - [#/volume] in Good Blood by [facility] count [facility] Erythrocytes 4.16 4.20-5.4 Below low normal [facility] - [#/volume] in M/uL 0 Good Blood by [facility] Automated count [facility] Hemoglobin 12.4 12.0-16. [facility] - [Mass/volume] in g/dL 0 Good Blood [facility] Hematocrit 37.7 % 36.0-47. [facility] - [Volume 0 Good Fraction] of [facility] Blood by Hospital Automated count Erythrocyte mean 90.6 FL 81.0-94. [facility] - corpuscular 0 Good volume [Entitic [facility] volume] by Hospital Automated count Erythrocyte mean 29.8 PG 27.0-35. [facility] - corpuscular 0 Good hemoglobin [facility] [Entitic mass] Hospital by Automated count Erythrocyte mean 32.9 30.7-37. [facility] - corpuscular g/dL 3 Good hemoglobin [facility] Hospital [Mass/volume] by Automated count Erythrocyte 12.6 % 11.5-14. [facility] - distribution 0 Good width [Ratio] by [facility] Automated count Hospital Platelets 260 K/uL 130-400 [facility] - [#/volume] in Good Blood by [facility] Automated count Hospital Platelet mean 10.8 FL 9.2-11.8 [facility] - volume [Entitic Good volume] in Blood [facility] by Automated Hospital count Nucleated 0.0 PER 0 [facility] - erythrocytes/100 100 WBC Good leukocytes [facility] [Ratio] in Blood [facility] Nucleated 0.00 0.0-0.01 [facility] - erythrocytes K/uL Good [#/volume] in [facility] Segmented 50 % 48.0-72. [facility] - neutrophils/100 0 Good leukocytes in [facility] Lymphocytes/100 42 % 18.0-40. Above high normal [facility] - leukocytes in [address] [facility] Blood [facility] Monocytes/100 5 % 2.0-12.0 [facility] - leukocytes in [facility] Blood [facility] Eosinophils/100 3 % 0.0-7.0 [facility] - leukocytes in [facility] Blood [facility] Basophils/100 0 % 0.0-3.0 [facility] - leukocytes in [facility] Blood [facility] Immature 0 % 0-0.5 [facility] - granulocytes/100 Good leukocytes in [facility] by Hospital Automated count Segmented 1.7 K/UL 2.3-7.6 Below low normal [facility] - neutrophils Good [#/volume] in [facility] Lymphocytes 1.4 K/UL 0.9-4.2 [facility] - [#/volume] in [facility] Monocytes 0.2 K/UL 0.1-1.7 [facility] - [#/volume] in [facility] Eosinophils 0.1 K/UL 0.0-1.0 [facility] - [#/volume] in [facility] Basophils 0.0 K/UL 0.0-0.4 [facility] - [#/volume] in [facility] Immature 0.0 K/UL 0.0-0.17 [facility] - granulocytes Good [#/volume] in [facility] by Hospital Automated count Differential [facility] - cell count Good method - Blood [facility] Procedure Social History Code Duration Value Status Description Data Source(s ) Alcohol intake 02/19/2020 Current completed Current drinker [facility] 12:00:00 AM EDT drinker of of alcohol [email or web address] alcohol (finding) [employer] (finding) Tobacco use and 02/19/2020 Never used completed Never used [facility] 12:00:00 AM EDT [email or web address] [facility] [employer] Smoking 02/19/2020 Never smoker completed Never smoker [facility] 12:00:00 AM EDT [email or web address] [facility] [employer] Alcohol intake 01/22/2020 Current completed Current drinker [facility] 12:00:00 AM EDT drinker of of alcohol [email or web address] alcohol (finding) [employer] (finding) Tobacco use and 01/22/2020 Never used completed Never used [facility] 12:00:00 AM EDT [email or web address] [facility] [employer] Smoking 01/22/2020 Never smoker completed Never smoker [facility] 12:00:00 AM EDT [email or web address] [facility] [employer] Alcohol intake 01/15/2020 Current completed Current drinker [facility] 12:00:00 AM EDT drinker of of alcohol [email or web address] alcohol (finding) [employer] (finding) Tobacco use and 01/15/2020 Never used completed Never used [facility] 12:00:00 AM EDT [email or web address] [facility] [employer] Smoking 01/15/2020 Never smoker completed Never smoker [facility] 12:00:00 AM EDT [email or web address] [facility] [employer] Alcohol intake 01/07/2020 Current completed Current drinker [facility] 12:00:00 AM EDT drinker of of alcohol [email or web address] alcohol (finding) [employer] (finding) Tobacco use and 01/07/2020 Never used completed Never used [facility] exposure 12:00:00 AM EDT [email or web address] [facility] [employer] Smoking 01/07/2020 Never smoker completed Never smoker [facility] 12:00:00 AM EDT [email or web address] [facility] [employer] Vital Signs ID Date Data Source UNK Name Value Range Interpretation Code Description Data Source(s) Body mass index 30.61 kg/m2 30.61 kg/m2 [facility] (BMI) [Ratio] [facility] Body weight 78.382 kg 78.382 kg [employer] Body height 160 cm 160 cm [employer] Respiratory rate 16 /min 16 /min [facility] [employer] Body temperature 36.44 Maye 36.44 Maye [facility] [employer] Diastolic blood 80 mm[Hg] 80 mm[Hg] [facility] pressure [employer] Systolic blood 136 mm[Hg] 136 mm[Hg] [facility] pressure [employer] Oxygen saturation 97 % 97 % [facility] in Arterial blood [employer] by Pulse oxim[facility] [employer] Body mass index 31.18 kg/m2 31.18 kg/m2 [facility] (BMI) [Ratio] [employer] Body weight 79.833 kg 79.833 kg [employer] Body height 160 cm 160 cm [employer] Body temperature 36.11 Maye 36.11 Maye [facility] [employer] Heart rate 80 /min 80 /min [employer] Diastolic blood 81 mm[Hg] 81 mm[Hg] [facility] pressure [employer] Systolic blood 136 mm[Hg] 136 mm[Hg] [facility] pressure [employer] Body mass index 31.53 kg/m2 31.53 kg/m2 [facility] (BMI) [Ratio] [facility] Body weight 80.74 kg 80.74 kg [employer] Body height 160 cm 160 cm [employer] Respiratory rate 18 /min 18 /min [facility] [employer] Body temperature 37.11 Maye 37.11 Maye [facility] [employer] Heart rate 68 /min 68 /min [employer] Diastolic blood 78 mm[Hg] 78 mm[Hg] [facility] pressure [employer] Systolic blood 130 mm[Hg] 130 mm[Hg] [facility] pressure [employer] Oxygen saturation 98 % 98 % [facility] in Arterial blood [email or web address] by [employer] Respiratory rate 18 /min 18 /min [facility] [employer] Body temperature 36.94 Maye 36.94 Maye [facility] Domingoo urs [employer] Heart rate 71 /min 71 /min Avila [employer] Diastolic blood 85 mm[Hg] 85 mm[Hg] Avial Domingoou rs pressure [employer] Systolic blood 132 mm[Hg] 132 mm[Hg] [facility] pressure [employer] Body mass index 28.33 kg/m2 28.33 kg/m2 Avila ponce (BMI) [Ratio] [facility] Body weight 79.606 kg 79.606 kg Avila [employer] Body height 167.6 cm 167.6 cm Avila [employer] Patient Treatment Plan of Care Planned Activity Planned Date Details Description Data Source (s) Lisinopril 20 MG Oral Tablet 02/02/2020 [facility] 12:00:00 AM [employer] Hydralazine Hydrochloride 25 01/26/2020 [facility] MG Oral Tablet 12:00:00 AM [employer] 24 HR metoprolol succinate 50 01/15/2020 [facility] MG Extended Release Oral 12:00:00 AM [employer] Tablet Lisinopril 20 MG Oral Tablet 01/08/2020 [facility] 12:00:00 AM [employer] 24 HR metoprolol succinate 50 01/08/2020 [facility] MG Extended Release Oral 12:00:00 AM [employer] Tablet 24 HR metoprolol succinate 50 11/24/2019 [facility] MG Extended Release Oral 12:00:00 AM [employer] Tablet Hydrochlorothiazide 25 MG / 10/05/2019 [facility] Lisinopril 20 MG Oral Tablet 12:00:00 AM [employer] Hydralazine Hydrochloride 25 07/10/2019 [facility] MG Oral Tablet 12:00:00 AM [facility] [employer] Magnesium Oxide 500 MG Oral [facility]ila Se[facility]
[2020-04-01 16:12] LABS: BASO % 0.5 % (0-2.0); EOS % 1.4 % (0-4.5); HEMATOCRIT 38.1 % (32.4-45.2); HEMOGLOBIN 12.4 GM/dL (10.7-15.3); LYMPH % 25.9 % (8-40); MCHC 32.7 g/dl (32.0-36.0); MEAN CELL VOLUME 88.7 fl (80-96); MEAN PLT VOLUME 9.1 fl (7.5-11.1); MONO % 5.3 % (3.8-10.2); NEUT % 66.9 % (42.8-82.8); PLATELET COUNT 235 K/MM3 (134-434); RBC 4.29 M/mm3 (3.60-5.2); RDW 13.9 % (11.6-15.6); WHITE BLOOD COUNT 3.2 K/mm3 (4.0-10.0)
--- NOTE | 2020-04-01 16:21 | PDOC ---
Documentation entered by Too Betts SCRIBE, acting as scribe for Luis F Gamble MD. Luis F Gamble MD: This documentation has been prepared by the Roxane pride Xhesika, SCRIBE, under my direction and personally reviewed by me in its entirety. I confirm that the documentation accurately reflects all work, treatment, procedures, and medical decision making performed by me. 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 Pt states she has not taken her metoprolol since Wednesday ( 03/29) due to insurance issues. Pt states she just had finished eating when her symptoms began. Pt denies any history of DVT/PE. Pt denies CP, SOB, headache, fevers, chills, N/V/D. Allergies: NKDA - Physicial Exam PE: 04/01/20 15:48 Vitals: Triage Vital signs reviewed General Appearance: no acute distress, well nourished well developed, Neck: Supple;No Nuchal rigidity Chest Wall: Nontender Cardiac: Regular rate and rhythm, no murmurs, no rubs, no gallops, Lungs: Clear to auscultation bilateral, good air movement bilaterally, Abdomen: Soft, nondistended, normal bowel sounds, nontender to palpation Extremities: Full range of motion to all extremities, no cyanosis, clubbing, or edema Skin: Warm and dry, no rashes or lesions, no petechiae Neuro: AOX3; Cranial Nerves 2-12 grossly c intact, Strength intact to all extremities, Sensation intact to all extremities Psych: normal mood, normal affect - Medical Decision Making 04/01/20 16:23 Palpitations and tachycardia since stopping her metoprolol on Wednesday secondary to insurance issues We will treat with home metoprolol check labs EKG observe and reassess EKG performed at 1513 demonstrates sinus tachycardia [address] elevations or T wave inversions Interpreted by me. Dr. Núñez to follow up patient and reassess Heart Score/ECG Review - ECG Impressions Comment:: 04/01/20 16:22 Discharge - Discharge Information Problems reviewed: Yes Clinical Impression/Diagnosis: Palpitations Condition: Stable Disposition: HOME - Additional Discharge Information Prescriptions: Metoprolol Succinate [Toprol Xl -] 50 mg PO BID #28 tablet - Follow up/Referral Referrals: ON STAFF,NOT [Primary Care Provider] - - Patient Discharge Instructions Patient Printed Discharge Instructions: DI for Palpitations Additional Instructions: You were seen in the emergency department for palpitations. In the ED, you were evaluated with labs, ekg, chest xray. Your results were normal. You do not appear to be an acute need for immediate hospitalization. You were given fluids and 50mg of metoprolol with improvement in your heart rate. You were given your evening dose of hydralazine for your blood pressure. You were advised to follow up with your primary care doctor within 1 week. You were given a prescription for metoprolol 100mg. Please split this tablet in half and take twice a day. Come back to the ER immediately with any new or worsening concerns, such as chest pain, palpitations, shortness of breath, headaches, or blurry vision. Thank you for coming to the [facility] ER. We hope you feel better soon! - Post Discharge Activity
[2020-04-01 16:23] LABS: PROTHROMBIN TIME (PATIENT) 12.1 SEC (9.7-13.0)
[2020-04-01 16:26] LABS: ACTIVATED PTT 28.4 SECONDS (25.2-36.5)
--- NOTE | 2020-04-01 16:35 | PDOC ---
History of Present Illness - General Chief Complaint: Palpitations Stated Complaint: PALPITATIONS Time Seen by Provider: 04/01/20 15:51 - History of Present Illness Initial Comments: 54yo F with PMH HTN presents with palpitations. 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 Reports milder symptoms this past weekend. States that she has been on metoprolol 50 BID since a similar episode in December, but due to insurance issues has not been able to fill her metoprolol since Wednesday. 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 Denies chest pain, f/c, SOB, JALLOH, hot/cold intolerance, abdominal pain, urinary symptoms, unexpected changes in weight PCP: states that medical care in [facility]. 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 PSHx: hip replacement Meds: metoprolol, lisinopril, hydralazine All: NKDA Social: denies VERÓNICA Review of Systems CONSTITUTIONAL: denies fever, chills, diaphoresis, generalized weakness, malaise, loss of appetite HEENT: denies rhinorrhea, nasal congestion, sore throat, visual changes CARDIOVASCULAR: reports palpitations; denies chest pain, syncope, irregular heart rate, lightheadedness, peripheral edema RESPIRATORY: denies cough, shortness of breath, dyspnea with exertion, orthopnea, wheezing GASTROINTESTINAL: denies abdominal pain, nausea, vomiting, diarrhea, constipation, melena, hematochezia GENITOURINARY: denies dysuria, frequency, urgency, hesitancy MUSCULOSKELETAL: denies myalgia, arthralgia HEMATOLOGIC/IMMUNOLOGIC: denies easy bleeding, easy bruising ENDOCRINE: denies unexplained weight gain, unexplained weight loss, heat intolerance, cold intolerance NEUROLOGIC: denies headache, loss of consciousness, focal weakness or paresthesias, dizziness, unsteady gait, mental status changes SKIN: denies rash, itching, pallor Physical Exam General: awake, alert, fully oriented, in no acute distress, well developed, well nourished Head: normocephalic, atraumatic Eyes: PERRL, anicteric sclera, conjunctiva clear ENT: hearing grossly normal, oropharynx clear without exudates, moist mucous membranes Neck: supple, normal ROM, no JVD or masses Lung: equal breath sounds b/l, CTA b/l, no crackles, wheezes; no distress, speaks full sentences Heart: tachycardic, normal S1, S2, no murmurs appreciated Abdomen: soft, non tender, normoactive bowel sounds, no guarding, rebound, masses Extremities: no edema, no erythema or tenderness, radial/DP/PT pulses 2+ and symmetric, no clubbing, cyanosis Neuro: CN2-12 grossly intact, moves all extremities, normal speech, sensation intact Skin: warm, dry, normal skin turgor, capillary refill <2 seconds, no rashes or lesions noted MDM 54yo F with PMH HTN presents with palpitations. Vitals significant for: tachycardia, hypertension DDx including but not limited to: SVT, sinus tachycardia, hyperthyroidism, infection, ACS Workup: labs, cxr, ekg TX: IV fluids, metoprolol EKG: sinus tachycardia, HR 127bpm, AK 142ms, QRS 78ms, QTc 441ms CXR - no acute chest pathology ED course Labs: leukopenia, no anemia, electrolytes WNL, UA with 1+ hematuria Reports improvement with metoprolol, tachycardia improved. Continued hypertension, pt states that she usually takes hydralazine around 6pm - will order home PM dose of hydralazine Confirmed with pharmacy that pt can picker and packer her prescription for metoprolol. Re-assessment: Patient stable for discharge. Tolerating PO, pain controlled. Informed of all lab and imaging results. Given follow up instructions and strict return precautions. Patient expressed understanding and agree to plan Disposition: Discharge Past History - Medical History Allergies/Adverse Reactions: Allergies Allergy/AdvReac Type Severity Reaction Status Date / Time No Known Allergies Allergy Verified 04/01/20 15:35 Home Medications: Ambulatory Orders Metoprolol Succinate [Toprol Xl -] 50 mg PO BID #28 tablet 04/01/20 - Psycho-Social/Smoking History Smoking History: Never smoked - Substance Abuse Hx (Audit-C & DAST Scrn) How often the patient has a drink containing alcohol: Monthly or less Score: In Men: 4 or > Positive; In Women: 3 or > Positive: 1 Screen Result (Pos requires Nsg. Audit-10AR): Negative In the last yr the pt used illegal drug/Rx for NonMed reason: No Score: Yes response is considered Positive: 0 Screen Result (Positive result requires Nsg. DAST-10): Negative *Physical Exam - Vital Signs Last Vital Signs Temp Pulse Resp BP Pulse Ox 98.1 F 128 H 17 177/110 H 99 04/01/20 15:26 04/01/20 15:26 04/01/20 15:26 04/01/20 15:26 04/01/20 15:26 ED Treatment Course - LABORATORY CBC & Chemistry Diagram: 04/01/20 15:30 04/01/20 15:30 - ADDITIONAL ORDERS Additional order review: Laboratory Results 04/01/20 15:30 PT with INR 12.10 INR 1.00 PTT (Actin FS) 28.4 - Medications Given in the ED: ED Medications Discontinued Medications Generic Name Dose Route Start Last Admin Trade Name Luis Alfredo PRN Reason Stop Dose Admin Lactated Ringer's 1,000 ml 04/01/20 15:45 04/01/20 15:58 Lactated Ringers Solution IV 04/01/20 15:46 1,000 ml ONCE ONE Administration Metoprolol Tartrate 50 mg 04/01/20 15:44 04/01/20 15:58 Lopressor - PO 04/01/20 15:45 50 mg ONCE ONE Administration Discharge - Discharge Information Problems reviewed: Yes Clinical Impression/Diagnosis: Palpitations Condition: Stable Disposition: HOME - Admission No - Additional Discharge Information Prescriptions: Metoprolol Succinate [Toprol Xl -] 50 mg PO BID #28 tablet - Follow up/Referral Referrals: ON STAFF,NOT [Primary Care Provider] - - Patient Discharge Instructions Patient Printed Discharge Instructions: DI for Palpitations Additional Instructions: You were seen in the emergency department for palpitations. In the ED, you were evaluated with labs, ekg, chest xray. Your results were normal. You do not appear to be an acute need for immediate hospitalization. You were given fluids and 50mg of metoprolol with improvement in your heart rate. You were given your evening dose of hydralazine for your blood pressure. You were advised to follow up with your primary care doctor within 1 week. You were given a prescription for metoprolol 100mg. Please split this tablet in half and take twice a day. Come back to the ER immediately with any new or worsening concerns, such as chest pain, palpitations, shortness of breath, headaches, or blurry vision. Thank you for coming to the [facility]. We hope you feel better soon! - Post Discharge Activity
[2020-04-01 16:53] LABS: EPI CELLS 21 /uL (0-25.1); HYALINE CASTS 0 /uL (0-3.1); PH,URINE 7.5 (5.0-8.0); URINE APPEARANCE CLEAR; URINE BACTERIA 355 /uL (0-1359); URINE BILIRUBIN NEGATIVE (NEGATIVE); URINE COLOR YELLOW; URINE GLUCOSE (UA) NEGATIVE (NEGATIVE); URINE KETONE NEGATIVE (NEGATIVE); URINE LEUK ESTERASE TRACE (NEGATIVE); URINE NITRITE NEGATIVE (NEGATIVE); URINE PROTEIN NEGATIVE (NEGATIVE); URINE RBC 5 /uL (0-23.9); URINE UROBILINOGEN 0.2 mg/dL (0.2-1.0); URINE WBC 16 /uL (0-25.8)
[2020-04-01 17:08] LABS: CHLORIDE 107 mmol/L (98-107); POTASSIUM 3.7 mmol/L (3.5-5.1); SODIUM 142 mmol/L (136-145)
[2020-04-01 17:10] LABS: CALCIUM 8.8 mg/dL (8.5-10.1)
[2020-04-01 17:12] LABS: ALBUMIN 3.6 g/dl (3.4-5.0); ANION GAP 7 MMOL/L (8-16); BLOOD UREA NITROGEN 9.5 mg/dL (7-18); CO2 27 mmol/L (21-32); GLUCOSE,RANDOM 110 mg/dL (74-106); MAGNESIUM 2.1 mg/dL (1.8-2.4)
[2020-04-01 17:15] LABS: BILIRUBIN,TOTAL 0.2 mg/dL (0.2-1); CREATININE 0.8 mg/dL (0.55-1.3); SGOT/AST 15 U/L (15-37); SGPT/ALT 17 U/L (13-61); TOT PROT 7.6 g/dl (6.4-8.2)
[2020-04-01 17:17] LABS: ALK PHOS 68 U/L (45-117)
[2020-04-01 17:20] LABS: N-TERMINAL BNP 56.6 pg/ml (5-125)
[2020-04-01] MEDS ORDERED: hydrALAZINE HCL 25 MG TABLET (FP) PO ONE (17:29)
[2020-04-01] MEDS ORDERED: hydrALAZINE HCL 25 MG TABLET (FP) ONE (17:31)
[2020-04-01 18:29] VITALS: BP 143/86; PULSE 77; TEMP 97.8
--- NOTE | 2020-04-02 10:36 | EKG ---
Test Reason : Blood Pressure : / mmHG Vent. Rate : 127 BPM Atrial Rate : 127 BPM P-R Int : 142 ms QRS Dur : 078 ms QT Int : 304 ms P-R-T Axes : 057 -06 069 degrees QTc Int : 441 ms POOR DATA QUALITY, INTERPRETATION MAY BE ADVERSELY AFFECTED SINUS TACHYCARDIA MINIMAL VOLTAGE CRITERIA FOR LVH, MAY BE NORMAL VARIANT ANTERIOR INFARCT , AGE UNDETERMINED ABNORMAL ECG NO PREVIOUS ECGS AVAILABLE Confirmed by MD SARAHI, SUDEEP ([id number]) on 04/02/2020 10:35:34 AM Referred By: Confirmed By:SUDEEP MCCLAIN MD
== END 2020-04-01 18:25 | disposition home or self-care (01) ==
LOC: JER 15:09
DX: R00.2 Palpitations (principal)
CPT/HCPCS: 36415; 71045-TC-FY; 80053; 81003; 83735; 83880; 84100; 84443; 84484; 85025; 85610; 85730; 87086; 93005; 93010; 99285-25